=== PATIENT | female | born 1970 | race African-American/Black ===

== ENCOUNTER 2021-05-08 04:37 | Inpatient (IN) | payer MEDICAID ==
[~2021-05-08] VITALS: Ht 154.9 cm; Wt 121.6 kg
[~2021-05-08 04:37] MED LIST: ALBU6.7H9 INH; BUDE6HFA INH; DOCU-138 MT; FERR325T23 PO; FURO-151 MT; IPRA3AMP9 HHN; METO-539 MT; P20 MT; POTA20TA82 PO
[2021-05-08] MEDS ORDERED: METHYLPREDNISOLONE SOD SUCC 125 MG/2 ML VIAL IV STA (04:46)
[2021-05-08] MEDS ORDERED: IPRATROPIUM BROMIDE (0.02%) 0.5MG/2.5ML NEB HHN STA (04:46)
[2021-05-08] MEDS ORDERED: ASPIRIN 81MG TABLET PO ONE (05:00)
[2021-05-08] MEDS ORDERED: MAGNESIUM 2 G PREMIX 50 ML IV ONE (05:00)
[2021-05-08 05:29] LABS: BASOPHILS % 0.6 % (0.0-2.0); CHLORIDE 105 mEq/L (98-107); EOSINOPHILS % 2.7 % (0.0-5.0); HEMATOCRIT. 34.9 % (36.0-48.0); HEMOGLOBIN. 10.2 g/dL (12.0-16.0); LYMPHOCYTES % 19.7 % (20.0-50.0); MEAN CORPUSCULAR HEMOGLOBIN 23.3 pg (28.0-32.0); MEAN CORPUSCULAR VOLUME 80.3 fL (81.0-99.0); MEAN PLATELET VOLUME 9.4 fl (7.4-10.4); MONOCYTES % 7.9 % (2.0-8.0); NEUTROPHILS % 69.1 % (40.0-76.0); PLATELET 208 x1000/uL (130-400); RED BLOOD CELL COUNT 4.35 mill/uL (4.2-5.4); RED CELL DISTRIBUTION WIDTH 25.9 % (11.6-14.6)
[2021-05-08 06:07] LABS: PLATELET ESTIMATE NORMAL
[2021-05-08] MEDS: ALBUTEROL (0.083%) 2.5MG/3ML NEB HHN SCH ×2 (06:12→06:13)
[2021-05-08] MEDS ORDERED: NITROGLYCERIN OINT 1GM/INCH UDPKT TD ONE (06:30)
[2021-05-08] MEDS ORDERED: FUROSEMIDE 40MG/4ML VIAL IV ONE (06:30)
[2021-05-08] MEDS ORDERED: ENOXAPARIN 120MG/0.8ML SYR SUBCUT ONE (06:30)
[2021-05-08 06:43] LABS: HCG SCREEN NEGATIVE
[2021-05-08] MEDS ORDERED: NA PHOS,M-B/NA PHOS,DI-BA ENEMA 118ML PR PRN (09:30)
[2021-05-08] MEDS ORDERED: LORAZEPAM 0.5MG TABLET PO PRN (09:30)
[2021-05-08] MEDS ORDERED: ACETAMINOPHEN 325MG TABLET PO PRN ×2 (09:30)
[2021-05-08] MEDS ORDERED: ENOXAPARIN 40MG/0.4ML SYR SUBCUT SCH (09:30)
[2021-05-08] MEDS ORDERED: NITROGLYCERIN 0.4MG TABLET SL SL PRN (09:30)
[2021-05-08] MEDS ORDERED: IPRATROPIUM/ALBUTEROL 0.5-3(2.5)MG/3ML NEB NEB PRN (09:30)
[2021-05-08] MEDS ORDERED: ZOLPIDEM TARTRATE 5MG TABLET PO PRN (09:30)
[2021-05-08] MEDS ORDERED: ONDANSETRON HCL 4MG/2ML INJ IV PRN (09:30)
[2021-05-08] MEDS ORDERED: MAGNESIUM/ALUMINUM HYDROXIDE/SIMETHICONE 30ML UDC PO PRN (09:30)
[2021-05-08] MEDS ORDERED: DOCUSATE SODIUM 100MG CAPSULE PO PRN (09:30)
[2021-05-08] MEDS ORDERED: CLONIDINE 0.1MG TABLET PO PRN (09:30)
[2021-05-08 09:48] LABS: CLARITY URINE CLOUDY (CLEAR); COLOR URINE YELLOW (YELLOW); KETONES URINE NEGATIVE (NEGATIVE); LEUKOCYTE ESTERASE URINE TRACE (NEGATIVE); NITRITE URINE NEGATIVE (NEGATIVE); OCCULT BLOOD URINE 3+ (NEGATIVE); PROTEIN URINE NEGATIVE (NEGATIVE); SPECIFIC GRAVITY URINE 1.007 (1.005-1.030); UROBILINOGEN URINE 0.2 E.U./dL (0.2-1.0)
[2021-05-08 09:50] LABS: PARTIAL THROMBOPLASTIN TIME 27.4 sec (23.4-31.0); PROTHROMBIN TIME 11.2 sec (9.6-11.0)
[2021-05-08] MEDS ORDERED: IOHEXOL-350 100 ML BOTTLE ONE (10:20)
[2021-05-08 10:23] LABS: *BENZODIAZEPINES SCREEN URINE NEGATIVE (NEGATIVE); METHADONE URINE SCREEN NEGATIVE (NEGATIVE)
[2021-05-08 10:24] LABS: *AMPHETAMINES SCREEN URINE NEGATIVE (NEGATIVE); *BARBITURATES SCREEN URINE NEGATIVE (NEGATIVE); CANNABINOID URINE SCREEN NEGATIVE (NEGATIVE); OPIATES URINE SCREEN NEGATIVE (NEGATIVE); PHENCYCLIDINE URINE SCREEN NEGATIVE (NEGATIVE)
[2021-05-08 10:34] LABS: *COCAINE SCREEN URINE PRESUMTIVE POSITIVE (NEGATIVE)
[2021-05-08] MEDS: DILTIAZEM HCL 60MG TABLET PO SCH ×2 (13:01→20:29)
[2021-05-08] MEDS: METHYLPREDNISOLONE SOD SUCC 125 MG/2 ML VIAL IV SCH ×2 (14:00→22:05)
[2021-05-08 18:00] VITALS: BP 129/77
[2021-05-08] MEDS: IPRATROPIUM/ALBUTEROL 0.5-3(2.5)MG/3ML NEB HHN SCH ×3 (18:05→21:45)
[2021-05-08] MEDS: GUAIFENESIN 200MG/10ML SUGAR FREE UDC PO PRN ×2 (18:22→22:05)
[2021-05-08 20:00] VITALS: BP 162/77
[2021-05-08] MEDS: ASCORBIC ACID 500 MG TABLET PO SCH (20:29)
[2021-05-08] MEDS: FUROSEMIDE 40MG/4ML VIAL IVP SCH (22:05)
[2021-05-09] VITALS (7 sets, daily range): BP systolic 115–139; BP diastolic 66–90
[2021-05-09] MEDS: IPRATROPIUM/ALBUTEROL 0.5-3(2.5)MG/3ML NEB HHN SCH ×4 (01:30→20:03)
[2021-05-09] MEDS: METHYLPREDNISOLONE SOD SUCC 125 MG/2 ML VIAL IV SCH ×3 (05:16→22:58)
[2021-05-09] MEDS: SPIRONOLACTONE 25MG TABLET PO SCH ×2 (05:17→18:07)
[2021-05-09] MEDS: DILTIAZEM HCL 60MG TABLET PO SCH ×5 (05:17→22:59)
[2021-05-09 06:04] LABS: CHLORIDE 99 mEq/L (98-107)
[2021-05-09 06:14] LABS: PHOSPHORUS 3.9 mg/dL (2.5-4.9)
[2021-05-09 06:17] LABS: CREATINE KINASE 163 IU/L (26-192)
[2021-05-09 06:19] LABS: CREATINE KINASE MB FRACTION 2.1 ng/mL (0.5-3.6)
[2021-05-09 06:23] LABS: HEMATOCRIT. 36.2 % (36.0-48.0); HEMOGLOBIN. 10.5 g/dL (12.0-16.0); MEAN CORPUSCULAR HEMOGLOBIN 23.1 pg (28.0-32.0); MEAN CORPUSCULAR VOLUME 79.8 fL (81.0-99.0); MEAN PLATELET VOLUME 10.2 fl (7.4-10.4); PLATELET 243 x1000/uL (130-400); RED BLOOD CELL COUNT 4.53 mill/uL (4.2-5.4); RED CELL DISTRIBUTION WIDTH 26.1 % (11.6-14.6)
[2021-05-09] MEDS: ASPIRIN 325MG EC TABLET PO SCH (09:01)
[2021-05-09] MEDS: CHOLECALCIFEROL (D3) 1000 UNIT TABLET PO SCH (09:01)
[2021-05-09] MEDS: ASCORBIC ACID 500 MG TABLET PO SCH ×2 (09:01→20:29)
[2021-05-09] MEDS: ENOXAPARIN 30MG/0.3ML SYR SUBCUT SCH ×2 (09:02→20:30)
[2021-05-09] MEDS: ZINC SULFATE 220 MG ( 50 ) CAPSULE PO SCH (09:03)
[2021-05-09] MEDS ORDERED: LEVOFLOXACIN 750MG PREMIX 150 ML IV SCH (10:00)
[2021-05-09] MEDS: FUROSEMIDE 40MG/4ML VIAL IVP SCH ×2 (10:33→20:30)
[2021-05-09] MEDS: LEVOFLOXACIN 750MG PREMIX 150 ML IV SCH (13:14)
[2021-05-09 14:08] LABS: PLATELET ESTIMATE NORMAL
[2021-05-09] MEDS: GUAIFENESIN 200MG/10ML SUGAR FREE UDC PO PRN (19:37)
[2021-05-10] MEDS: GUAIFENESIN 200MG/10ML SUGAR FREE UDC PO PRN ×6 (00:20→20:59)
[2021-05-10] MEDS: IPRATROPIUM/ALBUTEROL 0.5-3(2.5)MG/3ML NEB HHN SCH ×6 (00:57→21:28)
[2021-05-10 03:52] VITALS: BP 140/86
[2021-05-10] MEDS: SPIRONOLACTONE 25MG TABLET PO SCH ×2 (05:00→16:40)
[2021-05-10] MEDS: METHYLPREDNISOLONE SOD SUCC 125 MG/2 ML VIAL IV SCH ×3 (05:00→23:00)
[2021-05-10] MEDS: DILTIAZEM HCL 60MG TABLET PO SCH ×5 (05:01→23:00)
[2021-05-10 07:08] LABS: CHLORIDE 94 mEq/L (98-107)
[2021-05-10 07:18] LABS: PHOSPHORUS 3.4 mg/dL (2.5-4.9)
[2021-05-10 08:00] VITALS: BP 127/61
[2021-05-10] MEDS: LEVOFLOXACIN 750MG PREMIX 150 ML IV SCH (09:49)
[2021-05-10] MEDS: ENOXAPARIN 30MG/0.3ML SYR SUBCUT SCH ×2 (09:51→20:59)
[2021-05-10] MEDS: ZINC SULFATE 220 MG ( 50 ) CAPSULE PO SCH (09:51)
[2021-05-10] MEDS: FUROSEMIDE 40MG/4ML VIAL IVP SCH ×2 (09:52→20:59)
[2021-05-10] MEDS: CHOLECALCIFEROL (D3) 1000 UNIT TABLET PO SCH (09:52)
[2021-05-10] MEDS: ASPIRIN 325MG EC TABLET PO SCH (09:59)
[2021-05-10] MEDS: ASCORBIC ACID 500 MG TABLET PO SCH ×2 (09:59→20:59)
[2021-05-10 12:00] VITALS: BP 138/63
[2021-05-10 16:00] VITALS: BP 136/74
[2021-05-10 20:00] VITALS: BP 134/89
[2021-05-10 23:39] VITALS: BP 134/57
[2021-05-11] MEDS: IPRATROPIUM/ALBUTEROL 0.5-3(2.5)MG/3ML NEB HHN SCH ×3 (01:37→08:45)
[2021-05-11] MEDS: GUAIFENESIN 200MG/10ML SUGAR FREE UDC PO PRN ×2 (01:52→09:38)
[2021-05-11 04:00] VITALS: BP 146/96
[2021-05-11] MEDS: METHYLPREDNISOLONE SOD SUCC 125 MG/2 ML VIAL IV SCH (05:03)
[2021-05-11] MEDS: DILTIAZEM HCL 60MG TABLET PO SCH (05:03)
[2021-05-11] MEDS: SPIRONOLACTONE 25MG TABLET PO SCH (05:03)
[2021-05-11 08:00] VITALS: BP 132/69
[2021-05-11] MEDS: ZINC SULFATE 220 MG ( 50 ) CAPSULE PO SCH (09:35)
[2021-05-11] MEDS: ASCORBIC ACID 500 MG TABLET PO SCH (09:35)
[2021-05-11] MEDS: FUROSEMIDE 40MG/4ML VIAL IVP SCH (09:35)
[2021-05-11] MEDS: CHOLECALCIFEROL (D3) 1000 UNIT TABLET PO SCH (09:35)
[2021-05-11] MEDS: ASPIRIN 325MG EC TABLET PO SCH (09:36)
[2021-05-11] MEDS: LEVOFLOXACIN 750MG PREMIX 150 ML IV SCH (09:37)
[2021-05-11] MEDS: ENOXAPARIN 30MG/0.3ML SYR SUBCUT SCH (09:38)
[2021-05-11 10:11] VITALS: BP 132/69
== END 2021-05-11 11:30 | disposition home or self-care (01) | DRG 194 ==
LOC: ER 04:37 → MICUSO 07:39 → 8WST 16:43
PROVIDERS: ADMIT Internal Medicine; ATTEND Internal Medicine
DX: I11.0 Hypertensive heart disease with heart failure (principal); E44.1 Mild protein-calorie malnutrition; J44.1 Chronic obstructive pulmonary disease with (acute) exacerbation; D63.8 Anemia in other chronic diseases classified elsewhere; E83.51 Hypocalcemia; Z68.43 Body mass index [BMI] 50.0-59.9, adult; Z20.822 Contact with and (suspected) exposure to COVID-19; I50.33 Acute on chronic diastolic (congestive) heart failure; F14.10 Cocaine abuse, uncomplicated; I25.10 Atherosclerotic heart disease of native coronary artery without angina pectoris; Z79.84 Long term (current) use of oral hypoglycemic drugs; Z79.899 Other long term (current) drug therapy
CPT/HCPCS: 36415; 71045; 71275; 80048; 80053; 80305; 81003; 82550; 82553; 82728; 83615; 83735; 83880; 84100; 84145; 84484; 84703; 85025; 85379; 87426; 87804; 93005; 94640; 99285; J1650; J1940; J1956; J2930; J3475; Q9967

== ENCOUNTER 2021-06-02 11:47 | Inpatient (IN) | payer MEDICAID, OTHER ==
[~2021-06-02] VITALS: Ht 165.1 cm; Wt 131.1 kg
[2021-06-02] MEDS ORDERED: GABAPENTIN (11:51)
[2021-06-02] MEDS ORDERED: IPRATROPIUM BROMIDE (0.02%) 0.5MG/2.5ML NEB HHN STA (12:17)
[2021-06-02] MEDS ORDERED: METHYLPREDNISOLONE SOD SUCC 125 MG/2 ML VIAL IV STA (12:17)
[2021-06-02] MEDS ORDERED: NITROGLYCERIN OINT 1GM/INCH UDPKT TD ONE (12:30)
[2021-06-02] MEDS ORDERED: MAGNESIUM 2 G PREMIX 50 ML IV ONE (12:30)
[2021-06-02] MEDS ORDERED: ALBUTEROL (0.083%) 2.5MG/3ML NEB HHN SCH (12:30)
[2021-06-02] MEDS ORDERED: FUROSEMIDE 40MG/4ML VIAL IV ONE (12:30)
[2021-06-02 13:13] LABS: EOSINOPHILS % 1.7 % (0.0-5.0); HEMATOCRIT. 36.7 % (36.0-48.0); HEMOGLOBIN. 10.6 g/dL (12.0-16.0); LYMPHOCYTES % 23.5 % (20.0-50.0); MEAN CORPUSCULAR HEMOGLOBIN 22.9 pg (28.0-32.0); MEAN CORPUSCULAR VOLUME 79.4 fL (81.0-99.0); MONOCYTES % 10.9 % (2.0-8.0); NEUTROPHILS % 62.9 % (40.0-76.0); RED BLOOD CELL COUNT 4.62 mill/uL (4.2-5.4); RED CELL DISTRIBUTION WIDTH 25.1 % (11.6-14.6)
[2021-06-02 13:21] LABS: CHLORIDE 102 mEq/L (98-107)
[2021-06-02 13:34] LABS: PLATELET 133 x1000/uL (130-400)
[2021-06-02] MEDS ORDERED: LORAZEPAM 2MG/ML CPJ IM ONE (14:00)
[2021-06-02] MEDS ORDERED: LORAZEPAM 2MG/ML CPJ IV PRN (16:15)
[2021-06-02] MEDS ORDERED: DOCUSATE SODIUM 100MG CAPSULE PO PRN (16:15)
[2021-06-02] MEDS ORDERED: MORPHINE SULFATE 2 MG/ML CPJ (NOT FOR IM USE) IV PRN (16:15)
[2021-06-02] MEDS ORDERED: CLONIDINE 0.1MG TABLET PO PRN (16:15)
[2021-06-02] MEDS ORDERED: ACETAMINOPHEN 325MG TABLET PO PRN (16:15)
[2021-06-02] MEDS ORDERED: ONDANSETRON HCL 4MG/2ML INJ IV PRN (16:15)
[2021-06-02] MEDS ORDERED: HYDROCODONE/ACETAMINOPHEN 5/325MG TABLET PO PRN (16:15)
[2021-06-02] MEDS ORDERED: DIPHENHYDRAMINE 50MG/ML VIAL IV PRN (16:15)
[2021-06-02] MEDS ORDERED: MAGNESIUM/ALUMINUM HYDROXIDE/SIMETHICONE 30ML UDC PO PRN (16:15)
[2021-06-02 16:39] LABS: CLARITY URINE CLOUDY (CLEAR); COLOR URINE YELLOW (YELLOW); KETONES URINE NEGATIVE (NEGATIVE); LEUKOCYTE ESTERASE URINE NEGATIVE (NEGATIVE); NITRITE URINE NEGATIVE (NEGATIVE); OCCULT BLOOD URINE NEGATIVE (NEGATIVE); PROTEIN URINE TRACE (NEGATIVE); SPECIFIC GRAVITY URINE 1.019 (1.005-1.030)
[2021-06-02] MEDS ORDERED: ALBUTEROL 6.7GM HFA INHALER ORI PRN (17:13)
[2021-06-02] MEDS ORDERED: CEFTRIAXONE 1 G PREMIX 50 ML IV SCH (17:15)
[2021-06-02 17:16] LABS: *AMPHETAMINES SCREEN URINE NEGATIVE (NEGATIVE); *BARBITURATES SCREEN URINE NEGATIVE (NEGATIVE); *BENZODIAZEPINES SCREEN URINE NEGATIVE (NEGATIVE); METHADONE URINE SCREEN NEGATIVE (NEGATIVE)
[2021-06-02 17:17] LABS: OPIATES URINE SCREEN NEGATIVE (NEGATIVE); PHENCYCLIDINE URINE SCREEN NEGATIVE (NEGATIVE)
[2021-06-02 17:19] LABS: *COCAINE SCREEN URINE PRESUMTIVE POSITIVE (NEGATIVE); CANNABINOID URINE SCREEN PRESUMTIVE POSITIVE (NEGATIVE)
[2021-06-02] MEDS ORDERED: AZITHROMYCIN 500 MG in DEXT 5% WATER 250 ML IV SCH (18:00)
[2021-06-02] MEDS: ENOXAPARIN 40MG/0.4ML SYR SUBCUT SCH (18:54)
[2021-06-02] MEDS: METHYLPREDNISOLONE SOD SUCC 40 MG/ML VIAL IV SCH (20:13)
[2021-06-02] MEDS: SODIUM CHLORIDE 0.9% INJ 3ML FLUSH IVF SCH (22:00)
[2021-06-02] MEDS: IPRATROPIUM/ALBUTEROL 0.5-3(2.5)MG/3ML NEB HHN PRN (23:25)
[2021-06-03] VITALS: BP 130/76
[2021-06-03] MEDS: METHYLPREDNISOLONE SOD SUCC 40 MG/ML VIAL IV SCH ×2 (01:39→09:23)
[2021-06-03 04:00] VITALS: BP 140/83
[2021-06-03] MEDS: SODIUM CHLORIDE 0.9% INJ 3ML FLUSH IVF SCH ×2 (06:03→14:40)
[2021-06-03 07:45] LABS: CHLORIDE 97 mEq/L (98-107)
[2021-06-03] MEDS: FUROSEMIDE 40MG/4ML VIAL IV SCH (09:23)
[2021-06-03] MEDS: IPRATROPIUM/ALBUTEROL 0.5-3(2.5)MG/3ML NEB HHN PRN (11:26)
[2021-06-03] MEDS ORDERED: LIDOCAINE HCL/PF 1% 2ML VIAL ONE (12:18)
[2021-06-03 12:52] LABS: BG BASE EXCESS 8.2 mmol/L (-2.0-2.0); BG CARBOXYHEMOGLOBIN 1.3 % (0.5-1.5); BG DEOXYHEMOGLOBIN 14.3 % (0.0-5.0); BG HCO3 ACT 35.1 mmol/L (22.0-26.0); BG METHEMOGLOBIN 0.3 % (0.0-1.5); BG OXYGEN SATURATION 85.5 % (92.0-98.5); BG OXYHEMOGLOBIN 84.1 % (94.0-97.0); BG PH 7.378 (7.350-7.450); BG PO2 52.7 mmHg (75.0-100.0); BG SAMPLE SITE RIGHT RADIAL; BG TOTAL HEMOGLOBIN 11.3 g/dL (12.0-18.0); BG VENT MODE ROOM AIR
[2021-06-03 13:03] LABS: T4 FREE 0.73 ng/dL (0.76-1.46)
[2021-06-03] MEDS: METHYLPREDNISOLONE SOD SUCC 125 MG/2 ML VIAL IV SCH ×2 (14:39→16:57)
[2021-06-03] MEDS: IPRATROPIUM/ALBUTEROL 0.5-3(2.5)MG/3ML NEB HHN SCH ×2 (15:38→20:22)
[2021-06-03 16:23] LABS: HEMATOCRIT. 37.2 % (36.0-48.0); HEMOGLOBIN. 10.9 g/dL (12.0-16.0); MEAN CORPUSCULAR HEMOGLOBIN 23.2 pg (28.0-32.0); MEAN CORPUSCULAR VOLUME 79.3 fL (81.0-99.0); MEAN PLATELET VOLUME 10.7 fl (7.4-10.4); PLATELET 200 x1000/uL (130-400); RED BLOOD CELL COUNT 4.69 mill/uL (4.2-5.4); RED CELL DISTRIBUTION WIDTH 24.8 % (11.6-14.6)
[2021-06-03 16:42] LABS: CREATINE KINASE 151 IU/L (26-192)
[2021-06-03 16:43] LABS: CREATINE KINASE MB FRACTION 4.2 ng/mL (0.5-3.6)
[2021-06-03 16:53] LABS: PLATELET ESTIMATE NORMAL
[2021-06-03] MEDS: CEFTRIAXONE 1,000 MG in DEXTROSE 5% WATER 50 ML IV SCH (16:57)
[2021-06-03] MEDS: ENOXAPARIN 40MG/0.4ML SYR SUBCUT SCH (16:57)
[2021-06-03] MEDS ORDERED: NALOXONE HCL 0.4MG/ML VIAL IV PRN (17:00)
[2021-06-03] MEDS: AZITHROMYCIN 500 MG in DEXT 5% WATER 250 ML IV SCH (18:01)
[2021-06-03 20:00] VITALS: BP 145/63
[2021-06-03] MEDS: GUAIFENESIN 200MG/10ML SUGAR FREE UDC PO PRN (21:35)
[2021-06-03 23:33] LABS: CREATINE KINASE 123 IU/L (26-192)
[2021-06-03 23:34] LABS: CREATINE KINASE MB FRACTION 3.3 ng/mL (0.5-3.6)
[2021-06-04] VITALS: BP 146/72
[2021-06-04] MEDS: METHYLPREDNISOLONE SOD SUCC 125 MG/2 ML VIAL IV SCH ×5 (00:38→23:58)
[2021-06-04] MEDS: SODIUM CHLORIDE 0.9% INJ 3ML FLUSH IVF SCH ×4 (00:39→21:21)
[2021-06-04] MEDS: IPRATROPIUM/ALBUTEROL 0.5-3(2.5)MG/3ML NEB HHN SCH ×7 (00:49→23:26)
[2021-06-04 04:00] VITALS: BP 125/83
[2021-06-04 08:00] VITALS: BP 115/67
[2021-06-04 08:23] LABS: HEMOGLOBIN. 9.3 g/dL (12.0-16.0); MEAN CORPUSCULAR HEMOGLOBIN 22.8 pg (28.0-32.0); MEAN CORPUSCULAR VOLUME 78.1 fL (81.0-99.0); MEAN PLATELET VOLUME 10.3 fl (7.4-10.4); PLATELET 208 x1000/uL (130-400); RED CELL DISTRIBUTION WIDTH 24.8 % (11.6-14.6)
[2021-06-04 08:33] LABS: CHLORIDE 97 mEq/L (98-107)
[2021-06-04 08:46] LABS: CREATINE KINASE 83 IU/L (26-192)
[2021-06-04 08:51] LABS: CREATINE KINASE MB FRACTION 2.5 ng/mL (0.5-3.6)
[2021-06-04] MEDS: ENOXAPARIN 40MG/0.4ML SYR SUBCUT SCH ×2 (08:57→20:36)
[2021-06-04] MEDS: FUROSEMIDE 40MG/4ML VIAL IV SCH (08:57)
[2021-06-04 12:00] VITALS: BP 135/59
[2021-06-04 16:00] VITALS: BP 120/70
[2021-06-04] MEDS: CEFTRIAXONE 1,000 MG in DEXTROSE 5% WATER 50 ML IV SCH (17:14)
[2021-06-04] MEDS: AZITHROMYCIN 500 MG in DEXT 5% WATER 250 ML IV SCH (17:14)
[2021-06-04] MEDS: GUAIFENESIN 200MG/10ML SUGAR FREE UDC PO PRN (19:49)
[2021-06-04 20:00] VITALS: BP 135/62
[2021-06-04 23:26] LABS: PLATELET ESTIMATE NORMAL
[2021-06-05] VITALS: BP 132/65
[2021-06-05 04:00] VITALS: BP 128/62
[2021-06-05] MEDS: IPRATROPIUM/ALBUTEROL 0.5-3(2.5)MG/3ML NEB HHN SCH ×3 (04:22→13:10)
[2021-06-05] MEDS: SODIUM CHLORIDE 0.9% INJ 3ML FLUSH IVF SCH ×2 (06:01→12:24)
[2021-06-05] MEDS: METHYLPREDNISOLONE SOD SUCC 125 MG/2 ML VIAL IV SCH ×2 (06:01→12:24)
[2021-06-05 08:00] VITALS: BP 146/70
[2021-06-05] MEDS: FUROSEMIDE 40MG/4ML VIAL IV SCH (08:33)
[2021-06-05] MEDS: ENOXAPARIN 40MG/0.4ML SYR SUBCUT SCH (08:34)
[2021-06-05] MEDS: GUAIFENESIN 200MG/10ML SUGAR FREE UDC PO PRN (09:36)
[2021-06-05 12:00] VITALS: BP 122/64
[2021-06-05 13:12] VITALS: BP 122/64
== END 2021-06-05 14:25 | disposition home or self-care (01) | DRG 816 ==
LOC: ER 11:47 → EDBEDREQTM 14:09 → EDBEDREQ 14:09 → 8WST 14:44 → EDBEDREQ 14:46 → EDBEDREQTM 14:46 → ENRESERV 20:13
PROVIDERS: ADMIT Internal Medicine; ATTEND Internal Medicine
PROC: 05HY33Z Insertion of Infusion Device into Upper Vein, Percutaneous Approach (ICD-10-PCS; principal; 2021-06-02)
PROC: B54BZZA Ultrasonography of Right Lower Extremity Veins, Guidance (ICD-10-PCS; 2021-06-02)
DX: T40.5X1A Poisoning by cocaine, accidental (unintentional), initial encounter (principal); J96.01 Acute respiratory failure with hypoxia; I50.33 Acute on chronic diastolic (congestive) heart failure; J96.02 Acute respiratory failure with hypercapnia; E44.0 Moderate protein-calorie malnutrition; E66.01 Morbid (severe) obesity due to excess calories; I11.0 Hypertensive heart disease with heart failure; F12.10 Cannabis abuse, uncomplicated; Z20.822 Contact with and (suspected) exposure to COVID-19; F17.210 Nicotine dependence, cigarettes, uncomplicated; Z99.81 Dependence on supplemental oxygen; Z79.899 Other long term (current) drug therapy; Z98.891 History of uterine scar from previous surgery; Y92.89 Other specified places as the place of occurrence of the external cause; Z68.42 Body mass index [BMI] 45.0-49.9, adult; Z79.51 Long term (current) use of inhaled steroids; J68.0 Bronchitis and pneumonitis due to chemicals, gases, fumes and vapors
CPT/HCPCS: 36415; 36600; 71045; 76937; 80048; 80053; 80061; 80305; 81003; 82375; 82550; 82553; 82805; 83036; 83880; 84439; 84443; 84484; 85025; 85379; 87426; 93005; 93306; 93970; 94640; 99291; C1725; J0456; J0696; J1650; J1940; J2920; J2930; J3475; J3490; J7040; J7060

== ENCOUNTER 2021-06-05 19:56 | Emergency (ER) | payer MEDICAID ==
[~2021-06-05] VITALS: Ht 157.5 cm; Wt 132.0 kg
[~2021-06-05 19:56] MED LIST changes: +GABAPENTIN
[2021-06-05 20:05] VITALS: BP 148/77
[2021-06-05] MEDS ORDERED: IPRATROPIUM BROMIDE (0.02%) 0.5MG/2.5ML NEB HHN STA (20:21)
[2021-06-05] MEDS ORDERED: PREDNISONE 20MG TABLET PO STA (20:21)
[2021-06-05] MEDS ORDERED: ALBUTEROL (0.083%) 2.5MG/3ML NEB HHN STA (20:21)
== END 2021-06-05 21:47 | disposition home or self-care (01) ==
LOC: ER 21:17
DX: J44.1 Chronic obstructive pulmonary disease with (acute) exacerbation (principal); I11.0 Hypertensive heart disease with heart failure; I50.9 Heart failure, unspecified; I10 Essential (primary) hypertension; Z91.19 Patient's noncompliance with other medical treatment and regimen; Z98.890 Other specified postprocedural states; Z79.899 Other long term (current) drug therapy
CPT/HCPCS: 94640; 99283; J7512; Z7610

== ENCOUNTER 2021-07-09 16:53 | Inpatient (IN) | payer MEDICAID ==
[~2021-07-09] VITALS: Ht 157.5 cm; Wt 135.6 kg
[2021-07-09] MEDS ORDERED: METHYLPREDNISOLONE SOD SUCC 125 MG/2 ML VIAL IV STA (17:23)
[2021-07-09] MEDS ORDERED: ALBUTEROL (0.083%) 2.5MG/3ML NEB HHN STA ×2 (17:23→22:22)
[2021-07-09] MEDS ORDERED: IPRATROPIUM BROMIDE (0.02%) 0.5MG/2.5ML NEB HHN STA ×2 (17:23→22:22)
[2021-07-09] MEDS ORDERED: CEFTRIAXONE SODIUM 500 MG/VIAL IM ONE (17:30)
[2021-07-09] MEDS ORDERED: DOXYCYCLINE HYCLATE 100MG CAPSULE PO ONE (17:30)
[2021-07-09 19:28] LABS: BASOPHILS % 0.9 % (0.0-2.0); EOSINOPHILS % 2.3 % (0.0-5.0); HEMATOCRIT. 33.7 % (36.0-48.0); HEMOGLOBIN. 9.8 g/dL (12.0-16.0); MEAN CORPUSCULAR VOLUME 79.5 fL (81.0-99.0); MEAN PLATELET VOLUME 9.4 fl (7.4-10.4); MONOCYTES % 11.4 % (2.0-8.0); NEUTROPHILS % 68.4 % (40.0-76.0); PLATELET 223 x1000/uL (130-400); RED BLOOD CELL COUNT 4.24 mill/uL (4.2-5.4); RED CELL DISTRIBUTION WIDTH 24.3 % (11.6-14.6)
[2021-07-09 19:33] LABS: CHLORIDE 98 mEq/L (98-107)
[2021-07-09 20:07] LABS: PLATELET ESTIMATE NORMAL
[2021-07-09] MEDS ORDERED: PREDNISONE 20MG TABLET PO ONE (21:00)
[2021-07-09 22:43] LABS: BG BASE EXCESS 13.6 mmol/L (-2.0-2.0); BG CARBOXYHEMOGLOBIN 1.2 % (0.5-1.5); BG HCO3 ACT 42.6 mmol/L (22.0-26.0); BG METHEMOGLOBIN 0.2 % (0.0-1.5); BG OXYGEN SATURATION 92.9 % (92.0-98.5); BG OXYHEMOGLOBIN 91.6 % (94.0-97.0); BG PCO2 84.9 mmHg (35.0-45.0); BG PH 7.318 (7.350-7.450); BG PO2 72.4 mmHg (75.0-100.0); BG SAMPLE SITE RIGHT RADIAL; BG TOTAL HEMOGLOBIN 10.4 g/dL (12.0-18.0); BG VENT MODE NASAL CANNULA
[2021-07-09] MEDS ORDERED: FUROSEMIDE 40MG/4ML VIAL IVP NR (23:30)
[2021-07-10] VITALS (9 sets, daily range): BP systolic 129–155; BP diastolic 69–83
[2021-07-10 00:30] LABS: BG BASE EXCESS 11.8 mmol/L (-2.0-2.0); BG CARBOXYHEMOGLOBIN 1.3 % (0.5-1.5); BG DEOXYHEMOGLOBIN 2.2 % (0.0-5.0); BG FRACTION INSPIRED OXYGEN 80; BG HCO3 ACT 41.4 mmol/L (22.0-26.0); BG METHEMOGLOBIN 0.3 % (0.0-1.5); BG OXYGEN SATURATION 97.8 % (92.0-98.5); BG OXYHEMOGLOBIN 96.2 % (94.0-97.0); BG PCO2 88.8 mmHg (35.0-45.0); BG PH 7.286 (7.350-7.450); BG PO2 119.3 mmHg (75.0-100.0); BG SAMPLE SITE RIGHT RADIAL; BG TOTAL HEMOGLOBIN 10.7 g/dL (12.0-18.0); BG VENT MODE COOL AEROSOL
[2021-07-10] MEDS ORDERED: MAGNESIUM/ALUMINUM HYDROXIDE/SIMETHICONE 30ML UDC PO PRN (02:30)
[2021-07-10] MEDS ORDERED: GUAIFENESIN 200MG/10ML SUGAR FREE UDC PO PRN (02:30)
[2021-07-10] MEDS ORDERED: ZOLPIDEM TARTRATE 5MG TABLET PO PRN (02:30)
[2021-07-10] MEDS ORDERED: DIPHENHYDRAMINE 50MG/ML VIAL IV PRN (02:30)
[2021-07-10] MEDS ORDERED: ENOXAPARIN 40MG/0.4ML SYR SUBCUT SCH (02:30)
[2021-07-10] MEDS ORDERED: ONDANSETRON HCL 4MG/2ML INJ IV PRN (02:30)
[2021-07-10] MEDS ORDERED: IPRATROPIUM/ALBUTEROL 0.5-3(2.5)MG/3ML NEB HHN PRN (02:30)
[2021-07-10] MEDS ORDERED: ACETAMINOPHEN 325MG TABLET PO PRN ×2 (02:30)
[2021-07-10 02:58] LABS: BG BASE EXCESS 7.7 mmol/L (-2.0-2.0); BG CARBOXYHEMOGLOBIN 1.4 % (0.5-1.5); BG DEOXYHEMOGLOBIN 11.3 % (0.0-5.0); BG FRACTION INSPIRED OXYGEN 30; BG METHEMOGLOBIN 0.3 % (0.0-1.5); BG OXYGEN SATURATION 88.5 % (92.0-98.5); BG PCO2 73.6 mmHg (35.0-45.0); BG PH 7.307 (7.350-7.450); BG PO2 60.5 mmHg (75.0-100.0); BG SAMPLE SITE RIGHT RADIAL; BG TOTAL HEMOGLOBIN 10.8 g/dL (12.0-18.0); BG VENT MODE MASK - BIPAP
[2021-07-10] MEDS: METHYLPREDNISOLONE SOD SUCC 125 MG/2 ML VIAL IV SCH ×3 (08:18→23:01)
[2021-07-10] MEDS: IPRATROPIUM/ALBUTEROL 0.5-3(2.5)MG/3ML NEB HHN SCH ×4 (08:45→20:23)
[2021-07-10] MEDS: SODIUM CHLORIDE 0.9% INJ 3ML FLUSH IVF SCH ×2 (14:00→23:01)
[2021-07-10] MEDS: ENOXAPARIN 30MG/0.3ML SYR SUBCUT SCH ×2 (14:19→21:20)
[2021-07-10] MEDS: PANTOPRAZOLE 40MG DR TABLET PO SCH ×2 (14:19→21:20)
[2021-07-11] VITALS (12 sets, daily range): BP systolic 133–148; BP diastolic 70–96
[2021-07-11] MEDS: IPRATROPIUM/ALBUTEROL 0.5-3(2.5)MG/3ML NEB HHN SCH ×6 (00:06→20:36)
[2021-07-11] MEDS: METHYLPREDNISOLONE SOD SUCC 125 MG/2 ML VIAL IV SCH ×2 (05:26→14:05)
[2021-07-11] MEDS: SODIUM CHLORIDE 0.9% INJ 3ML FLUSH IVF SCH ×3 (05:26→21:40)
[2021-07-11] MEDS: PANTOPRAZOLE 40MG DR TABLET PO SCH ×2 (08:05→21:40)
[2021-07-11] MEDS: ENOXAPARIN 30MG/0.3ML SYR SUBCUT SCH (08:06)
[2021-07-11 11:54] LABS: BG BASE EXCESS 10.5 mmol/L (-2.0-2.0); BG CARBOXYHEMOGLOBIN 0.9 % (0.5-1.5); BG DEOXYHEMOGLOBIN 1.8 % (0.0-5.0); BG FRACTION INSPIRED OXYGEN 32; BG HCO3 ACT 37.2 mmol/L (22.0-26.0); BG OXYGEN SATURATION 98.2 % (92.0-98.5); BG OXYHEMOGLOBIN 97.3 % (94.0-97.0); BG PCO2 61.8 mmHg (35.0-45.0); BG PH 7.397 (7.350-7.450); BG PO2 111.9 mmHg (75.0-100.0); BG SAMPLE SITE LEFT RADIAL; BG TOTAL HEMOGLOBIN 10.7 g/dL (12.0-18.0); BG VENT MODE NASAL CANNULA
[2021-07-11] MEDS: ENOXAPARIN 40MG/0.4ML SYR SUBCUT SCH (21:38)
[2021-07-11] MEDS: FUROSEMIDE 40MG TABLET PO SCH (21:40)
[2021-07-12] VITALS (11 sets, daily range): BP systolic 92–160; BP diastolic 47–97
[2021-07-12] MEDS: IPRATROPIUM/ALBUTEROL 0.5-3(2.5)MG/3ML NEB HHN SCH ×5 (00:24→16:15)
[2021-07-12] MEDS: SODIUM CHLORIDE 0.9% INJ 3ML FLUSH IVF SCH ×2 (05:45→14:45)
[2021-07-12 07:20] LABS: CHLORIDE 93 mEq/L (98-107)
[2021-07-12 07:28] LABS: PHOSPHORUS 4.1 mg/dL (2.5-4.9)
[2021-07-12] MEDS ORDERED: METHYLPREDNISOLONE SOD SUCC 125 MG/2 ML VIAL IV SCH (09:00)
[2021-07-12] MEDS ORDERED: POTASSIUM CHLORIDE 10MEQ TABLET SR PO SCH (09:00)
[2021-07-12] MEDS: PANTOPRAZOLE 40MG DR TABLET PO SCH (09:13)
[2021-07-12] MEDS: FUROSEMIDE 40MG TABLET PO SCH (09:13)
[2021-07-12] MEDS: ENOXAPARIN 40MG/0.4ML SYR SUBCUT SCH (09:15)
[2021-07-13 04:09] LABS: NEISSERIA GONORRHOEAE NAA Negative (Negative)
== END 2021-07-12 23:32 | disposition home or self-care (01) | DRG 816 ==
LOC: ER 16:53 → EDBEDREQSVC 07-10 03:08 → ENRESERV 07-10 03:32 → CANRESERV 07-10 03:32 → EDBEDREQSVC 07-10 06:53 → MICUSO 07-10 07:26 → 5EST 07-10 08:39
PROVIDERS: ADMIT Internal Medicine; ATTEND Internal Medicine
PROC: 5A09357 Assistance with Respiratory Ventilation, Less than 24 Consecutive Hours, Continuous Positive Airway Pressure (ICD-10-PCS; principal; 2021-07-10)
PROC: 5A09357 Assistance with Respiratory Ventilation, Less than 24 Consecutive Hours, Continuous Positive Airway Pressure (ICD-10-PCS; 2021-07-12)
DX: T40.5X1A Poisoning by cocaine, accidental (unintentional), initial encounter (principal); J96.01 Acute respiratory failure with hypoxia; I50.33 Acute on chronic diastolic (congestive) heart failure; J96.02 Acute respiratory failure with hypercapnia; E44.1 Mild protein-calorie malnutrition; J68.0 Bronchitis and pneumonitis due to chemicals, gases, fumes and vapors; D64.9 Anemia, unspecified; E66.01 Morbid (severe) obesity due to excess calories; Z20.822 Contact with and (suspected) exposure to COVID-19; F14.10 Cocaine abuse, uncomplicated; F17.210 Nicotine dependence, cigarettes, uncomplicated; I25.10 Atherosclerotic heart disease of native coronary artery without angina pectoris; Z99.81 Dependence on supplemental oxygen; Z68.43 Body mass index [BMI] 50.0-59.9, adult; Z79.899 Other long term (current) drug therapy; Z71.51 Drug abuse counseling and surveillance of drug abuser; Y92.89 Other specified places as the place of occurrence of the external cause
CPT/HCPCS: 36415; 36600; 71045; 80048; 80053; 82375; 82805; 83735; 83880; 84100; 85025; 87210; 87426; 87491; 87591; 93005; 94640; 94660; 99291; C1893; J0696; J1650; J1940; J2930; J7512

== ENCOUNTER 2021-08-03 11:16 | Inpatient (IN) | payer MEDICAID ==
[~2021-08-03] VITALS: Ht 157.5 cm; Wt 129.9 kg
[2021-08-03] MEDS ORDERED: ALBUTEROL (0.083%) 2.5MG/3ML NEB HHN STA (11:25)
[2021-08-03] MEDS ORDERED: IPRATROPIUM BROMIDE (0.02%) 0.5MG/2.5ML NEB HHN STA (11:25)
[2021-08-03 12:24] LABS: BASOPHILS % 1.2 % (0.0-2.0); EOSINOPHILS % 0.7 % (0.0-5.0); HEMATOCRIT. 34.6 % (36.0-48.0); HEMOGLOBIN. 9.7 g/dL (12.0-16.0); LYMPHOCYTES % 7.9 % (20.0-50.0); MEAN CORPUSCULAR HEMOGLOBIN 22.3 pg (28.0-32.0); MEAN CORPUSCULAR VOLUME 79.3 fL (81.0-99.0); MEAN PLATELET VOLUME 10.2 fl (7.4-10.4); MONOCYTES % 5.4 % (2.0-8.0); NEUTROPHILS % 84.8 % (40.0-76.0); PLATELET 218 x1000/uL (130-400); RED BLOOD CELL COUNT 4.36 mill/uL (4.2-5.4); RED CELL DISTRIBUTION WIDTH 25.5 % (11.6-14.6)
[2021-08-03 12:32] LABS: CHLORIDE 100 mEq/L (98-107)
[2021-08-03 12:35] LABS: HCG SCREEN NEGATIVE
[2021-08-03] MEDS: METHYLPREDNISOLONE SOD SUCC 125 MG/2 ML VIAL IV STA ×2 (12:41→16:20)
[2021-08-03] MEDS: MAGNESIUM 2 G PREMIX 50 ML IV ONE ×2 (12:41→16:20)
[2021-08-03] MEDS: FUROSEMIDE 40MG/4ML VIAL IVP ONE ×2 (12:42→16:20)
[2021-08-03 12:48] LABS: PLATELET ESTIMATE NORMAL
[2021-08-03] MEDS ORDERED: LIDOCAINE HCL 1% 10 MG/ML 10ML VIAL ONE (13:43)
[2021-08-03] MEDS ORDERED: ONDANSETRON HCL 4MG/2ML INJ IV PRN (15:00)
[2021-08-03] MEDS ORDERED: DIPHENHYDRAMINE 50MG/ML VIAL IV PRN (15:00)
[2021-08-03] MEDS ORDERED: IPRATROPIUM/ALBUTEROL 0.5-3(2.5)MG/3ML NEB HHN PRN ×2 (15:00→15:30)
[2021-08-03] MEDS ORDERED: ACETAMINOPHEN 325MG TABLET PO PRN (15:00)
[2021-08-03] MEDS ORDERED: CLONIDINE 0.1MG TABLET PO PRN (15:00)
[2021-08-03] MEDS ORDERED: METHYLPREDNISOLONE SOD SUCC 40 MG/ML VIAL IV SCH (15:30)
[2021-08-03] MEDS ORDERED: LIDOCAINE HCL/PF 1% 2ML VIAL ONE (16:02)
[2021-08-03] MEDS: SPIRONOLACTONE 25MG TABLET PO SCH (16:40)
[2021-08-03] MEDS: AMLODIPINE 5MG TABLET PO SCH (16:40)
[2021-08-03 16:49] LABS: BG BASE EXCESS 0.5 mmol/L (-2.0-2.0); BG CARBOXYHEMOGLOBIN 1.5 % (0.5-1.5); BG DEOXYHEMOGLOBIN 15.5 % (0.0-5.0); BG METHEMOGLOBIN 0.2 % (0.0-1.5); BG OXYGEN SATURATION 84.2 % (92.0-98.5); BG OXYHEMOGLOBIN 82.8 % (94.0-97.0); BG PCO2 60.9 mmHg (35.0-45.0); BG PH 7.281 (7.350-7.450); BG PO2 53.5 mmHg (75.0-100.0); BG SAMPLE SITE RIGHT RADIAL; BG TOTAL HEMOGLOBIN 9.9 g/dL (12.0-18.0); BG VENT MODE NASAL CANNULA
[2021-08-03] MEDS ORDERED: DEXTROSE 50% WATER 50ML SYRINGE IV PRN (18:30)
[2021-08-03 18:46] LABS: CLARITY URINE CLEAR (CLEAR); COLOR URINE YELLOW (YELLOW); KETONES URINE NEGATIVE (NEGATIVE); LEUKOCYTE ESTERASE URINE NEGATIVE (NEGATIVE); NITRITE URINE NEGATIVE (NEGATIVE); OCCULT BLOOD URINE NEGATIVE (NEGATIVE); PROTEIN URINE NEGATIVE (NEGATIVE); SPECIFIC GRAVITY URINE 1.009 (1.005-1.030); UROBILINOGEN URINE 0.2 E.U./dL (0.2-1.0)
[2021-08-03 18:55] LABS: *AMPHETAMINES SCREEN URINE NEGATIVE (NEGATIVE); *BARBITURATES SCREEN URINE NEGATIVE (NEGATIVE)
[2021-08-03 18:56] LABS: *BENZODIAZEPINES SCREEN URINE NEGATIVE (NEGATIVE); CANNABINOID URINE SCREEN NEGATIVE (NEGATIVE); METHADONE URINE SCREEN NEGATIVE (NEGATIVE); OPIATES URINE SCREEN NEGATIVE (NEGATIVE); PHENCYCLIDINE URINE SCREEN NEGATIVE (NEGATIVE)
[2021-08-03 19:01] LABS: *COCAINE SCREEN URINE PRESUMTIVE POSITIVE (NEGATIVE)
[2021-08-03 20:32] VITALS: BP 119/87
[2021-08-03] MEDS: INSULIN LISPRO (LOW DOSE) 100 UNITS/ML SUBCUT SCH (21:00)
[2021-08-03] MEDS: GUAIFENESIN 600MG ER TABLET PO SCH (21:00)
[2021-08-03] MEDS: BLOOD SUGAR DIAGNOSTIC STRIP TEST SCH (21:00)
[2021-08-03] MEDS: ENOXAPARIN 40MG/0.4ML SYR SUBCUT SCH (21:56)
[2021-08-03 22:00] VITALS: BP 132/75
[2021-08-03 22:48] VITALS: BP 101/50
[2021-08-04] VITALS (12 sets, daily range): BP systolic 119–150; BP diastolic 67–86
[2021-08-04] MEDS: METHYLPREDNISOLONE SOD SUCC 40 MG/ML VIAL IV SCH ×3 (00:17→16:59)
[2021-08-04] MEDS: IPRATROPIUM/ALBUTEROL 0.5-3(2.5)MG/3ML NEB HHN SCH ×3 (01:49→09:06)
[2021-08-04] MEDS: BLOOD SUGAR DIAGNOSTIC STRIP TEST SCH ×4 (06:50→21:52)
[2021-08-04 07:01] LABS: CHLORIDE 98 mEq/L (98-107)
[2021-08-04 07:20] LABS: HEMATOCRIT. 35.9 % (36.0-48.0); HEMOGLOBIN. 10.2 g/dL (12.0-16.0); MEAN CORPUSCULAR HEMOGLOBIN 23.2 pg (28.0-32.0); MEAN CORPUSCULAR VOLUME 81.4 fL (81.0-99.0); MEAN PLATELET VOLUME 10.4 fl (7.4-10.4); PLATELET 191 x1000/uL (130-400); RED BLOOD CELL COUNT 4.41 mill/uL (4.2-5.4); RED CELL DISTRIBUTION WIDTH 25.2 % (11.6-14.6)
[2021-08-04] MEDS: INSULIN LISPRO (LOW DOSE) 100 UNITS/ML SUBCUT SCH ×4 (08:29→21:00)
[2021-08-04] MEDS: AMLODIPINE 5MG TABLET PO SCH (08:31)
[2021-08-04] MEDS: GUAIFENESIN 600MG ER TABLET PO SCH ×2 (08:31→21:00)
[2021-08-04] MEDS: FUROSEMIDE 40MG/4ML VIAL IVP SCH (08:31)
[2021-08-04] MEDS: ENOXAPARIN 40MG/0.4ML SYR SUBCUT SCH ×2 (08:32→21:53)
[2021-08-04] MEDS: SPIRONOLACTONE 25MG TABLET PO SCH (08:32)
[2021-08-04 12:40] LABS: BG BASE EXCESS 13.2 mmol/L (-2.0-2.0); BG CARBOXYHEMOGLOBIN 1.1 % (0.5-1.5); BG DEOXYHEMOGLOBIN 0.8 % (0.0-5.0); BG FRACTION INSPIRED OXYGEN 50; BG HCO3 ACT 42.8 mmol/L (22.0-26.0); BG METHEMOGLOBIN 0.3 % (0.0-1.5); BG OXYGEN SATURATION 99.2 % (92.0-98.5); BG OXYHEMOGLOBIN 97.8 % (94.0-97.0); BG PCO2 90.5 mmHg (35.0-45.0); BG PH 7.293 (7.350-7.450); BG PO2 151.5 mmHg (75.0-100.0); BG SAMPLE SITE RIGHT RADIAL; BG TOTAL HEMOGLOBIN 10.8 g/dL (12.0-18.0); BG VENT MODE MASK - BIPAP
[2021-08-04 17:32] LABS: BG CARBOXYHEMOGLOBIN 0.8 % (0.5-1.5); BG DEOXYHEMOGLOBIN 0.5 % (0.0-5.0); BG FRACTION INSPIRED OXYGEN 50; BG METHEMOGLOBIN 0.3 % (0.0-1.5); BG OXYGEN SATURATION 99.5 % (92.0-98.5); BG OXYHEMOGLOBIN 98.4 % (94.0-97.0); BG PH 7.327 (7.350-7.450); BG PO2 197.2 mmHg (75.0-100.0); BG SAMPLE SITE RIGHT RADIAL; BG TOTAL HEMOGLOBIN 10.8 g/dL (12.0-18.0); BG VENT MODE MASK - BIPAP
[2021-08-04 17:39] LABS: PLATELET ESTIMATE NORMAL
[2021-08-04] MEDS: PENICILLIN V POTASSIUM 250MG TABLET PO SCH (17:50)
[2021-08-05] VITALS (12 sets, daily range): BP systolic 129–159; BP diastolic 72–97
[2021-08-05] MEDS: PENICILLIN V POTASSIUM 250MG TABLET PO SCH ×4 (00:20→17:41)
[2021-08-05] MEDS: METHYLPREDNISOLONE SOD SUCC 40 MG/ML VIAL IV SCH ×3 (00:20→17:41)
[2021-08-05] MEDS: IPRATROPIUM/ALBUTEROL 0.5-3(2.5)MG/3ML NEB HHN SCH ×5 (05:34→21:13)
[2021-08-05] MEDS: BLOOD SUGAR DIAGNOSTIC STRIP TEST SCH ×4 (05:44→21:39)
[2021-08-05] MEDS: INSULIN LISPRO (LOW DOSE) 100 UNITS/ML SUBCUT SCH ×4 (07:09→21:00)
[2021-08-05 08:05] LABS: CHLORIDE 94 mEq/L (98-107)
[2021-08-05] MEDS: FUROSEMIDE 40MG/4ML VIAL IVP SCH ×2 (09:22→17:41)
[2021-08-05] MEDS: ENOXAPARIN 40MG/0.4ML SYR SUBCUT SCH ×2 (09:22→21:53)
[2021-08-05] MEDS: AMLODIPINE 5MG TABLET PO SCH (09:23)
[2021-08-05] MEDS: GUAIFENESIN 600MG ER TABLET PO SCH ×2 (09:23→21:53)
[2021-08-05] MEDS: SPIRONOLACTONE 25MG TABLET PO SCH (09:23)
[2021-08-05 14:23] LABS: BG BASE EXCESS 17.1 mmol/L (-2.0-2.0); BG CARBOXYHEMOGLOBIN 1.2 % (0.5-1.5); BG DEOXYHEMOGLOBIN 3.6 % (0.0-5.0); BG FRACTION INSPIRED OXYGEN 32; BG HCO3 ACT 46.5 mmol/L (22.0-26.0); BG METHEMOGLOBIN 0.1 % (0.0-1.5); BG OXYGEN SATURATION 96.4 % (92.0-98.5); BG OXYHEMOGLOBIN 95.1 % (94.0-97.0); BG PCO2 90.5 mmHg (35.0-45.0); BG PH 7.329 (7.350-7.450); BG PO2 89.8 mmHg (75.0-100.0); BG SAMPLE SITE RIGHT RADIAL; BG TOTAL HEMOGLOBIN 10.8 g/dL (12.0-18.0); BG VENT MODE NASAL CANNULA
[2021-08-05] MEDS: SILDENAFIL CITRATE 20MG TABLET PO SCH ×2 (15:27→21:56)
[2021-08-06] VITALS (12 sets, daily range): BP systolic 123–158; BP diastolic 75–97
[2021-08-06] MEDS: PENICILLIN V POTASSIUM 250MG TABLET PO SCH ×4 (00:49→17:09)
[2021-08-06] MEDS: IPRATROPIUM/ALBUTEROL 0.5-3(2.5)MG/3ML NEB HHN SCH ×6 (01:14→21:33)
[2021-08-06] MEDS: BLOOD SUGAR DIAGNOSTIC STRIP TEST SCH ×4 (06:40→20:55)
[2021-08-06] MEDS: FUROSEMIDE 40MG/4ML VIAL IVP SCH ×2 (06:40→17:09)
[2021-08-06] MEDS: SILDENAFIL CITRATE 20MG TABLET PO SCH ×3 (06:40→21:19)
[2021-08-06] MEDS: METHYLPREDNISOLONE SOD SUCC 40 MG/ML VIAL IV SCH ×2 (08:11→17:09)
[2021-08-06] MEDS: GUAIFENESIN 600MG ER TABLET PO SCH ×2 (08:11→21:20)
[2021-08-06] MEDS: INSULIN LISPRO (LOW DOSE) 100 UNITS/ML SUBCUT SCH ×4 (08:11→21:19)
[2021-08-06] MEDS: ENOXAPARIN 40MG/0.4ML SYR SUBCUT SCH ×2 (08:11→21:20)
[2021-08-06] MEDS: AMLODIPINE 5MG TABLET PO SCH (08:11)
[2021-08-06 09:40] LABS: BG BASE EXCESS 19.9 mmol/L (-2.0-2.0); BG CARBOXYHEMOGLOBIN 0.9 % (0.5-1.5); BG DEOXYHEMOGLOBIN 0.6 % (0.0-5.0); BG FRACTION INSPIRED OXYGEN 50; BG HCO3 ACT 48.6 mmol/L (22.0-26.0); BG METHEMOGLOBIN 0.3 % (0.0-1.5); BG OXYGEN SATURATION 99.4 % (92.0-98.5); BG OXYHEMOGLOBIN 98.2 % (94.0-97.0); BG PCO2 81.6 mmHg (35.0-45.0); BG PH 7.393 (7.350-7.450); BG PO2 188.1 mmHg (75.0-100.0); BG SAMPLE SITE RIGHT RADIAL; BG TOTAL HEMOGLOBIN 11.3 g/dL (12.0-18.0); BG TOTAL RESPIRATORY RATE 25 b/min; BG VENT MODE MASK - BIPAP
[2021-08-06 10:46] LABS: BASOPHILS % 0.3 % (0.0-2.0); EOSINOPHILS % 0.1 % (0.0-5.0); HEMOGLOBIN. 10.1 g/dL (12.0-16.0); LYMPHOCYTES % 7.7 % (20.0-50.0); MEAN CORPUSCULAR HEMOGLOBIN 22.9 pg (28.0-32.0); MEAN CORPUSCULAR VOLUME 79.5 fL (81.0-99.0); MEAN PLATELET VOLUME 10.1 fl (7.4-10.4); MONOCYTES % 10.3 % (2.0-8.0); NEUTROPHILS % 81.6 % (40.0-76.0); PLATELET 227 x1000/uL (130-400); RED CELL DISTRIBUTION WIDTH 25.3 % (11.6-14.6)
[2021-08-06 10:53] LABS: CHLORIDE 85 mEq/L (98-107)
[2021-08-06] MEDS ORDERED: FUROSEMIDE 20MG/2ML VIAL IVP NR (13:00)
[2021-08-07] VITALS (13 sets, daily range): BP systolic 99–150; BP diastolic 56–90
[2021-08-07] MEDS: PENICILLIN V POTASSIUM 250MG TABLET PO SCH ×4 (00:18→17:31)
[2021-08-07] MEDS: IPRATROPIUM/ALBUTEROL 0.5-3(2.5)MG/3ML NEB HHN SCH ×6 (01:12→21:26)
[2021-08-07] MEDS: FUROSEMIDE 40MG/4ML VIAL IVP SCH (06:01)
[2021-08-07] MEDS: SILDENAFIL CITRATE 20MG TABLET PO SCH ×3 (06:01→21:11)
[2021-08-07] MEDS: BLOOD SUGAR DIAGNOSTIC STRIP TEST SCH ×4 (06:09→21:00)
[2021-08-07] MEDS: INSULIN LISPRO (LOW DOSE) 100 UNITS/ML SUBCUT SCH ×4 (07:20→21:13)
[2021-08-07] MEDS: GUAIFENESIN 600MG ER TABLET PO SCH ×2 (08:20→21:11)
[2021-08-07] MEDS: METHYLPREDNISOLONE SOD SUCC 40 MG/ML VIAL IV SCH ×2 (08:20→17:30)
[2021-08-07] MEDS: AMLODIPINE 5MG TABLET PO SCH (08:21)
[2021-08-07] MEDS: ENOXAPARIN 40MG/0.4ML SYR SUBCUT SCH ×2 (08:24→21:11)
[2021-08-07 08:33] LABS: BASOPHILS % 1.1 % (0.0-2.0); EOSINOPHILS % 0.2 % (0.0-5.0); HEMATOCRIT. 33.5 % (36.0-48.0); HEMOGLOBIN. 9.9 g/dL (12.0-16.0); MEAN CORPUSCULAR VOLUME 78.2 fL (81.0-99.0); MEAN PLATELET VOLUME 10.3 fl (7.4-10.4); MONOCYTES % 11.1 % (2.0-8.0); NEUTROPHILS % 75.6 % (40.0-76.0); PLATELET 192 x1000/uL (130-400); RED BLOOD CELL COUNT 4.29 mill/uL (4.2-5.4); RED CELL DISTRIBUTION WIDTH 25.2 % (11.6-14.6)
[2021-08-07 08:54] LABS: CHLORIDE 85 mEq/L (98-107)
[2021-08-07 11:27] LABS: BG BASE EXCESS 22.3 mmol/L (-2.0-2.0); BG DEOXYHEMOGLOBIN 6.7 % (0.0-5.0); BG FRACTION INSPIRED OXYGEN 32; BG HCO3 ACT 49.8 mmol/L (22.0-26.0); BG METHEMOGLOBIN 0.1 % (0.0-1.5); BG OXYGEN SATURATION 93.2 % (92.0-98.5); BG OXYHEMOGLOBIN 92.2 % (94.0-97.0); BG PCO2 71.1 mmHg (35.0-45.0); BG PH 7.463 (7.350-7.450); BG PO2 67.1 mmHg (75.0-100.0); BG SAMPLE SITE LEFT BRACHIAL; BG TOTAL HEMOGLOBIN 11.3 g/dL (12.0-18.0); BG VENT MODE NASAL CANNULA
[2021-08-07] MEDS: FAMOTIDINE 20MG TABLET PO SCH (21:11)
[2021-08-08] VITALS (12 sets, daily range): BP systolic 130–158; BP diastolic 65–98
[2021-08-08] MEDS: PENICILLIN V POTASSIUM 250MG TABLET PO SCH ×4 (00:17→21:06)
[2021-08-08] MEDS: IPRATROPIUM/ALBUTEROL 0.5-3(2.5)MG/3ML NEB HHN SCH ×6 (00:50→21:23)
[2021-08-08 04:09] LABS: NEISSERIA GONORRHOEAE NAA Negative (Negative)
[2021-08-08] MEDS: INSULIN LISPRO (LOW DOSE) 100 UNITS/ML SUBCUT SCH ×4 (06:41→21:08)
[2021-08-08] MEDS: SILDENAFIL CITRATE 20MG TABLET PO SCH ×3 (06:41→21:07)
[2021-08-08] MEDS: BLOOD SUGAR DIAGNOSTIC STRIP TEST SCH ×4 (06:41→21:00)
[2021-08-08 07:23] LABS: BASOPHILS % 0.2 % (0.0-2.0); HEMATOCRIT. 34.6 % (36.0-48.0); HEMOGLOBIN. 10.5 g/dL (12.0-16.0); MEAN CORPUSCULAR HEMOGLOBIN 23.5 pg (28.0-32.0); MEAN CORPUSCULAR VOLUME 77.6 fL (81.0-99.0); MEAN PLATELET VOLUME 9.8 fl (7.4-10.4); MONOCYTES % 12.4 % (2.0-8.0); NEUTROPHILS % 74.4 % (40.0-76.0); PLATELET 225 x1000/uL (130-400); RED BLOOD CELL COUNT 4.46 mill/uL (4.2-5.4); RED CELL DISTRIBUTION WIDTH 25.6 % (11.6-14.6)
[2021-08-08 07:28] LABS: CHLORIDE 85 mEq/L (98-107)
[2021-08-08] MEDS: METHYLPREDNISOLONE SOD SUCC 40 MG/ML VIAL IV SCH ×2 (08:13→17:48)
[2021-08-08] MEDS: FAMOTIDINE 20MG TABLET PO SCH ×2 (08:14→21:06)
[2021-08-08] MEDS: FUROSEMIDE 40MG TABLET PO SCH (08:14)
[2021-08-08] MEDS: GUAIFENESIN 600MG ER TABLET PO SCH ×2 (08:14→21:06)
[2021-08-08] MEDS: AMLODIPINE 5MG TABLET PO SCH (08:14)
[2021-08-08] MEDS: ENOXAPARIN 40MG/0.4ML SYR SUBCUT SCH ×2 (08:16→21:06)
[2021-08-08 11:28] LABS: BG BASE EXCESS 17.6 mmol/L (-2.0-2.0); BG CARBOXYHEMOGLOBIN 1.3 % (0.5-1.5); BG DEOXYHEMOGLOBIN 3.6 % (0.0-5.0); BG FRACTION INSPIRED OXYGEN 32; BG HCO3 ACT 43.8 mmol/L (22.0-26.0); BG METHEMOGLOBIN 0.1 % (0.0-1.5); BG OXYGEN SATURATION 96.3 % (92.0-98.5); BG PCO2 59.4 mmHg (35.0-45.0); BG PH 7.486 (7.350-7.450); BG PO2 83.1 mmHg (75.0-100.0); BG SAMPLE SITE LEFT BRACHIAL; BG TOTAL HEMOGLOBIN 11.9 g/dL (12.0-18.0); BG VENT MODE NASAL CANNULA
[2021-08-09] VITALS (7 sets, daily range): BP systolic 131–156; BP diastolic 70–92
[2021-08-09] MEDS: IPRATROPIUM/ALBUTEROL 0.5-3(2.5)MG/3ML NEB HHN SCH ×3 (01:16→09:54)
[2021-08-09] MEDS: SILDENAFIL CITRATE 20MG TABLET PO SCH (06:29)
[2021-08-09] MEDS: INSULIN LISPRO (LOW DOSE) 100 UNITS/ML SUBCUT SCH (06:29)
[2021-08-09] MEDS: BLOOD SUGAR DIAGNOSTIC STRIP TEST SCH (06:29)
[2021-08-09 08:08] LABS: CHLORIDE 89 mEq/L (98-107)
[2021-08-09] MEDS ORDERED: FURO-151 MT (08:53)
[2021-08-09] MEDS ORDERED: GUAI600T44 PO (08:53)
[2021-08-09] MEDS ORDERED: FAMO20TA8 PO (08:53)
[2021-08-09] MEDS ORDERED: P20 MT (08:53)
[2021-08-09] MEDS ORDERED: REV20 PO (08:53)
[2021-08-09] MEDS ORDERED: AMLO5TAB88 PO (08:53)
[2021-08-09] MEDS ORDERED: ALBU6.7H9 INH (08:53)
[2021-08-09] MEDS ORDERED: [UNRECOGNIZED DRUG - OTHER] PO (08:53)
[2021-08-09] MEDS ORDERED: BUDE6HFA INH (08:53)
[2021-08-09] MEDS: AMLODIPINE 5MG TABLET PO SCH (08:59)
[2021-08-09] MEDS: GUAIFENESIN 600MG ER TABLET PO SCH (09:00)
[2021-08-09] MEDS: PENICILLIN V POTASSIUM 250MG TABLET PO SCH (09:00)
[2021-08-09] MEDS: FUROSEMIDE 40MG TABLET PO SCH (09:01)
[2021-08-09] MEDS: METHYLPREDNISOLONE SOD SUCC 40 MG/ML VIAL IV SCH (09:01)
[2021-08-09] MEDS: FAMOTIDINE 20MG TABLET PO SCH (09:01)
[2021-08-09] MEDS: ENOXAPARIN 40MG/0.4ML SYR SUBCUT SCH (09:01)
== END 2021-08-09 11:00 | disposition home or self-care (01) | DRG 720 ==
LOC: ER 11:25 → 3WST 13:24 → EDBEDREQ 13:33 → EDBEDREQSVC 17:35 → EDBEDREQ 17:38 → ENRESERV 17:55
PROVIDERS: ADMIT Internal Medicine; ATTEND Internal Medicine
PROC: 5A09357 Assistance with Respiratory Ventilation, Less than 24 Consecutive Hours, Continuous Positive Airway Pressure (ICD-10-PCS; principal; 2021-08-03)
PROC: 5A09357 Assistance with Respiratory Ventilation, Less than 24 Consecutive Hours, Continuous Positive Airway Pressure (ICD-10-PCS; 2021-08-04)
PROC: 02HV33Z Insertion of Infusion Device into Superior Vena Cava, Percutaneous Approach (ICD-10-PCS; 2021-08-04)
PROC: B548ZZA Ultrasonography of Superior Vena Cava, Guidance (ICD-10-PCS; 2021-08-04)
PROC: 5A09357 Assistance with Respiratory Ventilation, Less than 24 Consecutive Hours, Continuous Positive Airway Pressure (ICD-10-PCS; 2021-08-05)
PROC: 5A09357 Assistance with Respiratory Ventilation, Less than 24 Consecutive Hours, Continuous Positive Airway Pressure (ICD-10-PCS; 2021-08-06)
PROC: 5A09357 Assistance with Respiratory Ventilation, Less than 24 Consecutive Hours, Continuous Positive Airway Pressure (ICD-10-PCS; 2021-08-07)
PROC: 5A09357 Assistance with Respiratory Ventilation, Less than 24 Consecutive Hours, Continuous Positive Airway Pressure (ICD-10-PCS; 2021-08-08)
PROC: 5A09357 Assistance with Respiratory Ventilation, Less than 24 Consecutive Hours, Continuous Positive Airway Pressure (ICD-10-PCS; 2021-08-09)
DX: A41.9 Sepsis, unspecified organism (principal); I50.33 Acute on chronic diastolic (congestive) heart failure; E87.2 Acidosis; J96.01 Acute respiratory failure with hypoxia; I27.20 Pulmonary hypertension, unspecified; J96.02 Acute respiratory failure with hypercapnia; J18.9 Pneumonia, unspecified organism; E44.1 Mild protein-calorie malnutrition; I11.0 Hypertensive heart disease with heart failure; E66.2 Morbid (severe) obesity with alveolar hypoventilation; Z99.81 Dependence on supplemental oxygen; Z68.43 Body mass index [BMI] 50.0-59.9, adult; J44.1 Chronic obstructive pulmonary disease with (acute) exacerbation; F14.10 Cocaine abuse, uncomplicated; F17.210 Nicotine dependence, cigarettes, uncomplicated; K43.9 Ventral hernia without obstruction or gangrene; Z60.2 Problems related to living alone; D64.9 Anemia, unspecified; E87.5 Hyperkalemia; I25.10 Atherosclerotic heart disease of native coronary artery without angina pectoris; J02.0 Streptococcal pharyngitis; Z20.822 Contact with and (suspected) exposure to COVID-19; Z79.51 Long term (current) use of inhaled steroids; Z79.899 Other long term (current) drug therapy; Z71.6 Tobacco abuse counseling; Z71.51 Drug abuse counseling and surveillance of drug abuser
CPT/HCPCS: 36415; 36600; 71045; 76937; 80048; 80053; 80305; 81003; 82375; 82805; 82962; 83605; 83880; 84145; 84443; 84484; 84703; 85025; 86592; 87430; 87491; 87591; 93005; 93306; 93970; 94640; 94660; 99291; C1725; C9803; J1650; J1815; J1940; J2920; J2930; J3475; J3490; U0003; U0005

== ENCOUNTER 2021-10-26 11:08 | Inpatient (IN) | payer MEDICAID, OTHER ==
[~2021-10-26] VITALS: Ht 162.6 cm; Wt 133.8 kg
[~2021-10-26 11:08] MED LIST changes: +AMLO5TAB88 PO; +FAMO20TA8 PO; -GABAPENTIN; +GUAI600T44 PO; -METO-539 MT; -POTA20TA82 PO; +REV20 PO; +[UNRECOGNIZED DRUG - OTHER] PO
[2021-10-26 13:49] LABS: HEMATOCRIT. 37.9 % (36.0-48.0); HEMOGLOBIN. 10.8 g/dL (12.0-16.0); MEAN CORPUSCULAR HEMOGLOBIN 22.9 pg (28.0-32.0); MEAN CORPUSCULAR VOLUME 80.4 fL (81.0-99.0); MEAN PLATELET VOLUME 9.9 fl (7.4-10.4); PLATELET 209 x1000/uL (130-400); RED BLOOD CELL COUNT 4.71 mill/uL (4.2-5.4); RED CELL DISTRIBUTION WIDTH 25.3 % (11.6-14.6)
[2021-10-26 13:57] LABS: CHLORIDE 101 mEq/L (98-107)
[2021-10-26 14:07] LABS: HCG SCREEN NEGATIVE
[2021-10-26 14:33] LABS: PLATELET ESTIMATE NORMAL
[2021-10-26] MEDS ORDERED: METHYLPREDNISOLONE SOD SUCC 125 MG/2 ML VIAL IV STA (14:38)
[2021-10-26] MEDS ORDERED: ALBUTEROL (0.083%) 2.5MG/3ML NEB HHN STA (14:38)
[2021-10-26] MEDS ORDERED: IPRATROPIUM BROMIDE (0.02%) 0.5MG/2.5ML NEB HHN STA (14:38)
[2021-10-26] MEDS ORDERED: FUROSEMIDE 40MG/4ML VIAL IVP ONE (14:45)
[2021-10-26 15:24] LABS: BG BASE EXCESS 8.9 mmol/L (-2.0-2.0); BG CARBOXYHEMOGLOBIN 1.3 % (0.5-1.5); BG DEOXYHEMOGLOBIN 0.5 % (0.0-5.0); BG HCO3 ACT 38.3 mmol/L (22.0-26.0); BG METHEMOGLOBIN 0.4 % (0.0-1.5); BG OXYGEN SATURATION 99.5 % (92.0-98.5); BG OXYHEMOGLOBIN 97.8 % (94.0-97.0); BG PCO2 82.6 mmHg (35.0-45.0); BG PH 7.284 (7.350-7.450); BG PO2 245.5 mmHg (75.0-100.0); BG SAMPLE SITE RIGHT RADIAL; BG TOTAL HEMOGLOBIN 11.9 g/dL (12.0-18.0); BG VENT MODE NASAL CANNULA
[2021-10-26 16:10] LABS: CLARITY URINE CLEAR (CLEAR); COLOR URINE YELLOW (YELLOW); KETONES URINE NEGATIVE (NEGATIVE); LEUKOCYTE ESTERASE URINE NEGATIVE (NEGATIVE); NITRITE URINE NEGATIVE (NEGATIVE); OCCULT BLOOD URINE NEGATIVE (NEGATIVE); PROTEIN URINE NEGATIVE (NEGATIVE); SPECIFIC GRAVITY URINE 1.015 (1.005-1.030)
[2021-10-26 21:35] VITALS: BP 163/113
[2021-10-26 22:00] VITALS: BP 159/94
[2021-10-26] MEDS ORDERED: ACETAMINOPHEN 325MG TABLET PO PRN (23:30)
[2021-10-27] VITALS (12 sets, daily range): BP systolic 119–159; BP diastolic 53–98
[2021-10-27] MEDS: METHYLPREDNISOLONE SOD SUCC 40 MG/ML VIAL IV SCH ×5 (00:28→21:07)
[2021-10-27] MEDS ORDERED: LEVOFLOXACIN 500MG PREMIX 100 ML IV SCH (02:00)
[2021-10-27 05:42] LABS: BASOPHILS % 0.1 % (0.0-2.0); HEMATOCRIT. 38.6 % (36.0-48.0); HEMOGLOBIN. 11.3 g/dL (12.0-16.0); LYMPHOCYTES % 7.7 % (20.0-50.0); MEAN CORPUSCULAR HEMOGLOBIN 23.6 pg (28.0-32.0); MEAN CORPUSCULAR VOLUME 80.6 fL (81.0-99.0); MONOCYTES % 2.3 % (2.0-8.0); NEUTROPHILS % 89.9 % (40.0-76.0); RED BLOOD CELL COUNT 4.79 mill/uL (4.2-5.4); RED CELL DISTRIBUTION WIDTH 25.3 % (11.6-14.6)
[2021-10-27 06:10] LABS: CHLORIDE 97 mEq/L (98-107)
[2021-10-27] MEDS ORDERED: LIDOCAINE HCL 1% 20ML VIAL (Pyxis) INJ ONE (08:00)
[2021-10-27] MEDS: ENOXAPARIN 40MG/0.4ML SYR SUBCUT SCH ×3 (09:00→21:07)
[2021-10-27] MEDS: LISINOPRIL 20MG TABLET PO SCH (09:35)
[2021-10-27] MEDS: FUROSEMIDE 40MG/4ML VIAL IVP SCH ×2 (09:35→17:35)
[2021-10-27] MEDS: GUAIFENESIN/DM 600MG/30MG ER TAB 12HR PO SCH ×2 (09:36→21:09)
[2021-10-27] MEDS: CARVEDILOL 3.125 MG TABLET PO SCH ×2 (09:36→17:35)
[2021-10-27] MEDS: PANTOPRAZOLE SODIUM 40 MG/VIAL IV SCH (09:38)
[2021-10-27] MEDS: AMLODIPINE 10MG TABLET PO SCH (09:38)
[2021-10-27 10:28] LABS: PLATELET 217 x1000/uL (130-400)
[2021-10-27] MEDS: IPRATROPIUM/ALBUTEROL 0.5-3(2.5)MG/3ML NEB HHN SCH ×4 (11:18→20:25)
[2021-10-27] MEDS: LEVOFLOXACIN 500MG PREMIX 100 ML IV SCH (12:42)
[2021-10-27] MEDS: SILDENAFIL CITRATE 20MG TABLET PO SCH (21:07)
[2021-10-28] VITALS (13 sets, daily range): BP systolic 92–138; BP diastolic 49–91
[2021-10-28] MEDS: IPRATROPIUM/ALBUTEROL 0.5-3(2.5)MG/3ML NEB HHN SCH ×6 (00:51→20:31)
[2021-10-28] MEDS: SILDENAFIL CITRATE 20MG TABLET PO SCH ×3 (05:29→20:39)
[2021-10-28 06:22] LABS: BASOPHILS % 0.2 % (0.0-2.0); EOSINOPHILS % 0.1 % (0.0-5.0); HEMATOCRIT. 37.5 % (36.0-48.0); LYMPHOCYTES % 9.7 % (20.0-50.0); MEAN CORPUSCULAR HEMOGLOBIN 23.4 pg (28.0-32.0); MEAN CORPUSCULAR VOLUME 79.9 fL (81.0-99.0); MEAN PLATELET VOLUME 10.8 fl (7.4-10.4); MONOCYTES % 8.1 % (2.0-8.0); NEUTROPHILS % 81.9 % (40.0-76.0); PLATELET 228 x1000/uL (130-400); RED CELL DISTRIBUTION WIDTH 25.4 % (11.6-14.6)
[2021-10-28 06:48] LABS: CHLORIDE 92 mEq/L (98-107)
[2021-10-28] MEDS: ENOXAPARIN 40MG/0.4ML SYR SUBCUT SCH ×3 (09:00→20:41)
[2021-10-28] MEDS: GUAIFENESIN/DM 600MG/30MG ER TAB 12HR PO SCH ×2 (09:14→20:38)
[2021-10-28] MEDS: METHYLPREDNISOLONE SOD SUCC 40 MG/ML VIAL IV SCH ×3 (09:15→22:29)
[2021-10-28] MEDS: PANTOPRAZOLE SODIUM 40 MG/VIAL IV SCH (09:15)
[2021-10-28] MEDS: LISINOPRIL 20MG TABLET PO SCH (09:15)
[2021-10-28] MEDS: FUROSEMIDE 40MG/4ML VIAL IVP SCH ×2 (09:15→17:19)
[2021-10-28] MEDS: AMLODIPINE 10MG TABLET PO SCH (09:15)
[2021-10-28] MEDS: CARVEDILOL 3.125 MG TABLET PO SCH ×2 (09:43→16:45)
[2021-10-28] MEDS ORDERED: IPRATROPIUM/ALBUTEROL 0.5-3(2.5)MG/3ML NEB HHN PRN (10:45)
[2021-10-28] MEDS: LEVOFLOXACIN 500MG PREMIX 100 ML IV SCH (12:27)
[2021-10-28 18:13] LABS: *BARBITURATES SCREEN URINE NEGATIVE (NEGATIVE); *BENZODIAZEPINES SCREEN URINE NEGATIVE (NEGATIVE); *COCAINE SCREEN URINE PRESUMTIVE POSITIVE (NEGATIVE); CANNABINOID URINE SCREEN NEGATIVE (NEGATIVE); METHADONE URINE SCREEN NEGATIVE (NEGATIVE); OPIATES URINE SCREEN PRESUMTIVE POSITIVE (NEGATIVE); PHENCYCLIDINE URINE SCREEN NEGATIVE (NEGATIVE)
[2021-10-28 18:14] LABS: *AMPHETAMINES SCREEN URINE NEGATIVE (NEGATIVE)
[2021-10-29] VITALS (7 sets, daily range): BP systolic 100–147; BP diastolic 65–87
[2021-10-29] MEDS: IPRATROPIUM/ALBUTEROL 0.5-3(2.5)MG/3ML NEB HHN SCH ×4 (00:39→12:38)
[2021-10-29] MEDS: SILDENAFIL CITRATE 20MG TABLET PO SCH (05:18)
[2021-10-29] MEDS: METHYLPREDNISOLONE SOD SUCC 40 MG/ML VIAL IV SCH (08:29)
[2021-10-29] MEDS: ENOXAPARIN 40MG/0.4ML SYR SUBCUT SCH (08:29)
[2021-10-29] MEDS: AMLODIPINE 10MG TABLET PO SCH (08:29)
[2021-10-29] MEDS: FUROSEMIDE 40MG/4ML VIAL IVP SCH (08:29)
[2021-10-29] MEDS: CARVEDILOL 3.125 MG TABLET PO SCH (08:29)
[2021-10-29] MEDS: LISINOPRIL 20MG TABLET PO SCH (08:30)
[2021-10-29] MEDS: GUAIFENESIN/DM 600MG/30MG ER TAB 12HR PO SCH (08:34)
[2021-10-29] MEDS ORDERED: FAMOTIDINE 20MG TABLET PO SCH (09:00)
[2021-10-29] MEDS ORDERED: P20 MT (11:02)
== END 2021-10-29 15:56 | disposition home or self-care (01) | DRG 720 ==
LOC: ER 11:08 → EDBEDREQ 17:08 → ENRESERV 20:39 → 5EST 21:33
PROVIDERS: ADMIT Internal Medicine; ATTEND Internal Medicine
PROC: 5A09357 Assistance with Respiratory Ventilation, Less than 24 Consecutive Hours, Continuous Positive Airway Pressure (ICD-10-PCS; principal; 2021-10-26)
PROC: 5A09357 Assistance with Respiratory Ventilation, Less than 24 Consecutive Hours, Continuous Positive Airway Pressure (ICD-10-PCS; 2021-10-27)
PROC: B54MZZA Ultrasonography of Right Upper Extremity Veins, Guidance (ICD-10-PCS; 2021-10-27)
PROC: 05HY33Z Insertion of Infusion Device into Upper Vein, Percutaneous Approach (ICD-10-PCS; 2021-10-27)
PROC: 5A09357 Assistance with Respiratory Ventilation, Less than 24 Consecutive Hours, Continuous Positive Airway Pressure (ICD-10-PCS; 2021-10-28)
PROC: 5A09357 Assistance with Respiratory Ventilation, Less than 24 Consecutive Hours, Continuous Positive Airway Pressure (ICD-10-PCS; 2021-10-29)
DX: A41.9 Sepsis, unspecified organism (principal); J96.21 Acute and chronic respiratory failure with hypoxia; I50.33 Acute on chronic diastolic (congestive) heart failure; E44.1 Mild protein-calorie malnutrition; I27.20 Pulmonary hypertension, unspecified; J44.0 Chronic obstructive pulmonary disease with (acute) lower respiratory infection; Z68.43 Body mass index [BMI] 50.0-59.9, adult; J68.0 Bronchitis and pneumonitis due to chemicals, gases, fumes and vapors; T59.891A Toxic effect of other specified gases, fumes and vapors, accidental (unintentional), initial encounter; Z20.822 Contact with and (suspected) exposure to COVID-19; I11.0 Hypertensive heart disease with heart failure; J96.22 Acute and chronic respiratory failure with hypercapnia; J44.1 Chronic obstructive pulmonary disease with (acute) exacerbation; F17.210 Nicotine dependence, cigarettes, uncomplicated; E66.01 Morbid (severe) obesity due to excess calories; F14.10 Cocaine abuse, uncomplicated; Z99.81 Dependence on supplemental oxygen; Y92.89 Other specified places as the place of occurrence of the external cause; Z79.899 Other long term (current) drug therapy; Z71.51 Drug abuse counseling and surveillance of drug abuser; Z71.6 Tobacco abuse counseling; Z71.3 Dietary counseling and surveillance
CPT/HCPCS: 36415; 36600; 71045; 76937; 80048; 80053; 80305; 81003; 82375; 82805; 83880; 84484; 84703; 85025; 87426; 93005; 93306; 94640; 99285; C1725; C9113; J1650; J1940; J1956; J2920; J2930; J3490

== ENCOUNTER 2022-01-02 02:41 | Inpatient (IN) | payer MEDICAID, OTHER ==
[~2022-01-02] VITALS: Ht 157.5 cm; Wt 132.0 kg
[~2022-01-02 02:41] MED LIST changes: +IPRA3AMP9 NEB; +METR-167 PO; -[UNRECOGNIZED DRUG - OTHER] PO
[2022-01-02] MEDS ORDERED: METHYLPREDNISOLONE SOD SUCC 125 MG/2 ML VIAL IV STA (03:27)
[2022-01-02] MEDS ORDERED: IPRATROPIUM/ALBUTEROL 0.5-3(2.5)MG/3ML NEB HHN ONE ×2 (03:30→04:45)
[2022-01-02 04:17] LABS: BASOPHILS % 1.2 % (0.0-2.0); EOSINOPHILS % 2.3 % (0.0-5.0); HEMATOCRIT. 38.2 % (36.0-48.0); HEMOGLOBIN. 11.1 g/dL (12.0-16.0); LYMPHOCYTES % 18.5 % (20.0-50.0); MEAN CORPUSCULAR HEMOGLOBIN 23.9 pg (28.0-32.0); MEAN CORPUSCULAR VOLUME 82.7 fL (81.0-99.0); MEAN PLATELET VOLUME 10.7 fl (7.4-10.4); MONOCYTES % 10.1 % (2.0-8.0); NEUTROPHILS % 67.9 % (40.0-76.0); PLATELET 253 x1000/uL (130-400); RED BLOOD CELL COUNT 4.62 mill/uL (4.2-5.4); RED CELL DISTRIBUTION WIDTH 25.1 % (11.6-14.6)
[2022-01-02 04:23] LABS: CHLORIDE 100 mEq/L (98-107)
[2022-01-02] MEDS ORDERED: MAGNESIUM 2 G PREMIX 50 ML IV ONE (04:45)
[2022-01-02] MEDS ORDERED: ALBUTEROL (0.5%) 2.5MG/0.5ML NEB HHN ONE (04:45)
[2022-01-02 05:10] LABS: PLATELET ESTIMATE NORMAL
[2022-01-02] MEDS: IPRATROPIUM/ALBUTEROL 0.5-3(2.5)MG/3ML NEB HHN SCH ×2 (11:55→20:38)
[2022-01-02] MEDS ORDERED: ONDANSETRON HCL 4MG/2ML INJ IV PRN (12:00)
[2022-01-02] MEDS ORDERED: ACETAMINOPHEN 325MG TABLET PO PRN (12:00)
[2022-01-02] MEDS: METHYLPREDNISOLONE SOD SUCC 40 MG/ML VIAL IV SCH ×2 (13:26→22:17)
[2022-01-02] MEDS: FAMOTIDINE 20MG TABLET PO SCH (22:17)
[2022-01-02] MEDS: HYDROCODONE/ACETAMINOPHEN 5/325MG TABLET PO PRN (22:18)
[2022-01-03] MEDS: IPRATROPIUM/ALBUTEROL 0.5-3(2.5)MG/3ML NEB HHN SCH ×6 (00:44→20:00)
[2022-01-03] MEDS: METHYLPREDNISOLONE SOD SUCC 40 MG/ML VIAL IV SCH ×3 (05:25→21:21)
[2022-01-03 10:39] VITALS: BP 100/78
[2022-01-03 10:54] LABS: BG BASE EXCESS 9.1 mmol/L (-2.0-2.0); BG CARBOXYHEMOGLOBIN 1.3 % (0.5-1.5); BG DEOXYHEMOGLOBIN 8.4 % (0.0-5.0); BG FRACTION INSPIRED OXYGEN 28; BG HCO3 ACT 36.1 mmol/L (22.0-26.0); BG METHEMOGLOBIN 0.3 % (0.0-1.5); BG OXYGEN SATURATION 91.5 % (92.0-98.5); BG PCO2 61.8 mmHg (35.0-45.0); BG PH 7.384 (7.350-7.450); BG PO2 61.8 mmHg (75.0-100.0); BG SAMPLE SITE RIGHT RADIAL; BG TOTAL HEMOGLOBIN 11.9 g/dL (12.0-18.0); BG VENT MODE NASAL CANNULA
[2022-01-03 11:35] VITALS: BP 110/82
[2022-01-03] MEDS ORDERED: NALOXONE HCL 0.4MG/ML VIAL IV PRN (14:45)
[2022-01-03] MEDS ORDERED: KETOROLAC 15MG/ML VIAL IV PRN (14:45)
[2022-01-03 16:30] VITALS: BP 94/46
[2022-01-03 20:00] VITALS: BP 115/62
[2022-01-03] MEDS ORDERED: CLOTRIMAZOLE 1% VAGINAL CREAM 45GM VG SCH (21:00)
[2022-01-03] MEDS: FAMOTIDINE 20MG TABLET PO SCH (21:21)
[2022-01-03] MEDS: HYDROCODONE/ACETAMINOPHEN 5/325MG TABLET PO PRN (21:22)
[2022-01-04] VITALS: BP 130/70
[2022-01-04] MEDS: IPRATROPIUM/ALBUTEROL 0.5-3(2.5)MG/3ML NEB HHN SCH ×5 (00:03→17:05)
[2022-01-04 04:00] VITALS: BP 135/80
[2022-01-04] MEDS: METHYLPREDNISOLONE SOD SUCC 40 MG/ML VIAL IV SCH ×2 (05:15→17:55)
[2022-01-04 08:00] VITALS: BP 128/75
[2022-01-04] MEDS: GUAIFENESIN-DM 200MG-20MG/10ML UDC PO PRN ×2 (11:06→17:55)
[2022-01-04 12:00] VITALS: BP 132/78
[2022-01-04 16:00] VITALS: BP 119/79
[2022-01-04 18:22] VITALS: BP 125/76
== END 2022-01-04 19:38 | disposition home or self-care (01) | DRG 816 ==
LOC: ER 02:41 → MICUSO 05:35 → EDBEDREQSVC 19:19 → 6WST 01-03 10:00
PROVIDERS: ADMIT Internal Medicine; ATTEND Internal Medicine
PROC: 5A09357 Assistance with Respiratory Ventilation, Less than 24 Consecutive Hours, Continuous Positive Airway Pressure (ICD-10-PCS; principal; 2022-01-03)
DX: T40.5X1A Poisoning by cocaine, accidental (unintentional), initial encounter (principal); J96.21 Acute and chronic respiratory failure with hypoxia; E44.0 Moderate protein-calorie malnutrition; J68.0 Bronchitis and pneumonitis due to chemicals, gases, fumes and vapors; I50.32 Chronic diastolic (congestive) heart failure; E66.01 Morbid (severe) obesity due to excess calories; F17.210 Nicotine dependence, cigarettes, uncomplicated; Z20.822 Contact with and (suspected) exposure to COVID-19; I11.0 Hypertensive heart disease with heart failure; Z60.2 Problems related to living alone; J96.22 Acute and chronic respiratory failure with hypercapnia; Z99.81 Dependence on supplemental oxygen; Y92.89 Other specified places as the place of occurrence of the external cause; Z68.43 Body mass index [BMI] 50.0-59.9, adult; Z79.899 Other long term (current) drug therapy; Z71.3 Dietary counseling and surveillance; Z71.6 Tobacco abuse counseling; F14.10 Cocaine abuse, uncomplicated; Z71.51 Drug abuse counseling and surveillance of drug abuser
CPT/HCPCS: 36415; 36600; 71045; 80053; 82375; 82805; 83880; 84484; 85025; 87426; 93005; 94640; 94660; 99285; J2920; J2930; J3475

== ENCOUNTER 2022-02-17 15:07 | Inpatient (IN) | payer MEDICAID, OTHER ==
[~2022-02-17] VITALS: Ht 157.5 cm; Wt 126.8 kg
[2022-02-17] MEDS ORDERED: ALBUTEROL (0.083%) 2.5MG/3ML NEB HHN STA (15:10)
[2022-02-17] MEDS ORDERED: METHYLPREDNISOLONE SOD SUCC 125 MG/2 ML VIAL IV STA (15:10)
[2022-02-17] MEDS ORDERED: IPRATROPIUM BROMIDE (0.02%) 0.5MG/2.5ML NEB HHN STA (15:10)
[2022-02-17] MEDS ORDERED: CEFTRIAXONE 1 G PREMIX 50 ML IV ONE (15:15)
[2022-02-17] MEDS ORDERED: AZITHROMYCIN 500MG/250ML 250 ML IV ONE (15:15)
[2022-02-17 15:39] LABS: BG BASE EXCESS 6.7 mmol/L (-2.0-2.0); BG CARBOXYHEMOGLOBIN 1.8 % (0.5-1.5); BG DEOXYHEMOGLOBIN 11.7 % (0.0-5.0); BG FRACTION INSPIRED OXYGEN 100; BG HCO3 ACT 35.9 mmol/L (22.0-26.0); BG METHEMOGLOBIN 0.3 % (0.0-1.5); BG OXYHEMOGLOBIN 86.2 % (94.0-97.0); BG PCO2 79.3 mmHg (35.0-45.0); BG PH 7.274 (7.350-7.450); BG PO2 66.3 mmHg (75.0-100.0); BG SAMPLE SITE RIGHT RADIAL; BG TOTAL HEMOGLOBIN 11.7 g/dL (12.0-18.0); BG VENT MODE MASK - BIPAP
[2022-02-17 15:53] LABS: BASOPHILS % 0.8 % (0.0-2.0); EOSINOPHILS % 1.7 % (0.0-5.0); HEMATOCRIT. 36.2 % (36.0-48.0); HEMOGLOBIN. 10.8 g/dL (12.0-16.0); LYMPHOCYTES % 17.9 % (20.0-50.0); MEAN CORPUSCULAR HEMOGLOBIN 24.7 pg (28.0-32.0); MEAN CORPUSCULAR VOLUME 82.7 fL (81.0-99.0); MEAN PLATELET VOLUME 10.2 fl (7.4-10.4); MONOCYTES % 11.3 % (2.0-8.0); NEUTROPHILS % 68.3 % (40.0-76.0); PLATELET 201 x1000/uL (130-400); RED BLOOD CELL COUNT 4.38 mill/uL (4.2-5.4); RED CELL DISTRIBUTION WIDTH 25.3 % (11.6-14.6)
[2022-02-17 16:34] LABS: PLATELET ESTIMATE NORMAL
[2022-02-17] MEDS ORDERED: METHYLPREDNISOLONE SOD SUCC 125 MG/2 ML VIAL IV NR (16:53)
[2022-02-17] MEDS ORDERED: FUROSEMIDE 40MG/4ML VIAL IVP NR (18:00)
[2022-02-17] MEDS ORDERED: NITROGLYCERIN 0.4MG/HR PATCH TOP ONE (18:00)
[2022-02-17 18:11] LABS: CHLORIDE 102 mEq/L (98-107)
[2022-02-17] MEDS ORDERED: NITROGLYCERIN 0.4MG/HR PATCH TOP NR (18:45)
[2022-02-17] MEDS ORDERED: IPRATROPIUM/ALBUTEROL 0.5-3(2.5)MG/3ML NEB HHN PRN (20:45)
[2022-02-17] MEDS: FUROSEMIDE 40MG/4ML VIAL IVP SCH (21:00)
[2022-02-17] MEDS: METHYLPREDNISOLONE SOD SUCC 125 MG/2 ML VIAL IV SCH (22:00)
[2022-02-17 22:07] LABS: CLARITY URINE CLEAR (CLEAR); COLOR URINE YELLOW (YELLOW); KETONES URINE NEGATIVE (NEGATIVE); LEUKOCYTE ESTERASE URINE NEGATIVE (NEGATIVE); NITRITE URINE NEGATIVE (NEGATIVE); OCCULT BLOOD URINE 2+ (NEGATIVE); PROTEIN URINE NEGATIVE (NEGATIVE); SPECIFIC GRAVITY URINE 1.005 (1.005-1.030); UROBILINOGEN URINE 0.2 E.U./dL (0.2-1.0)
[2022-02-17 22:50] LABS: *AMPHETAMINES SCREEN URINE NEGATIVE (NEGATIVE); *BARBITURATES SCREEN URINE NEGATIVE (NEGATIVE); *BENZODIAZEPINES SCREEN URINE NEGATIVE (NEGATIVE); *COCAINE SCREEN URINE PRESUMTIVE POSITIVE (NEGATIVE); CANNABINOID URINE SCREEN NEGATIVE (NEGATIVE); METHADONE URINE SCREEN NEGATIVE (NEGATIVE); OPIATES URINE SCREEN NEGATIVE (NEGATIVE); PHENCYCLIDINE URINE SCREEN NEGATIVE (NEGATIVE)
[2022-02-17] MEDS: IPRATROPIUM/ALBUTEROL 0.5-3(2.5)MG/3ML NEB HHN SCH (23:01)
[2022-02-18] VITALS (10 sets, daily range): BP systolic 118–154; BP diastolic 62–101
[2022-02-18] MEDS ORDERED: ONDANSETRON HCL 4MG/2ML INJ IV PRN (05:15)
[2022-02-18] MEDS ORDERED: ACETAMINOPHEN 325MG TABLET PO PRN (05:15)
[2022-02-18] MEDS: METHYLPREDNISOLONE SOD SUCC 125 MG/2 ML VIAL IV SCH ×4 (07:04→21:47)
[2022-02-18] MEDS: SILDENAFIL CITRATE 20MG TABLET PO SCH ×3 (07:07→21:48)
[2022-02-18 08:15] LABS: HEMATOCRIT. 40.2 % (36.0-48.0); HEMOGLOBIN. 11.4 g/dL (12.0-16.0); MEAN CORPUSCULAR HEMOGLOBIN 24.1 pg (28.0-32.0); MEAN CORPUSCULAR VOLUME 84.5 fL (81.0-99.0); MEAN PLATELET VOLUME 11.2 fl (7.4-10.4); PLATELET 216 x1000/uL (130-400); RED BLOOD CELL COUNT 4.75 mill/uL (4.2-5.4); RED CELL DISTRIBUTION WIDTH 25.4 % (11.6-14.6)
[2022-02-18 08:19] LABS: BG CARBOXYHEMOGLOBIN 1.2 % (0.5-1.5); BG DEOXYHEMOGLOBIN 16.5 % (0.0-5.0); BG FRACTION INSPIRED OXYGEN 100; BG HCO3 ACT 43.4 mmol/L (22.0-26.0); BG METHEMOGLOBIN 0.3 % (0.0-1.5); BG OXYGEN SATURATION 83.2 % (92.0-98.5); BG PCO2 105.6 mmHg (35.0-45.0); BG PH 7.232 (7.350-7.450); BG PO2 55.9 mmHg (75.0-100.0); BG TOTAL HEMOGLOBIN 12.1 g/dL (12.0-18.0); BG VENT MODE MASK - NRB
[2022-02-18 08:33] LABS: CHLORIDE 97 mEq/L (98-107)
[2022-02-18 08:40] LABS: HDL CHOLESTEROL 75 mg/dL (40-59); LDL CHOLESTEROL 54 mg/dL (5-100)
[2022-02-18] MEDS: AMLODIPINE 10MG TABLET PO SCH (08:59)
[2022-02-18] MEDS: ENOXAPARIN 40MG/0.4ML SYR SUBCUT SCH ×2 (09:00→21:00)
[2022-02-18] MEDS: FUROSEMIDE 40MG/4ML VIAL IVP SCH ×2 (09:00→17:00)
[2022-02-18] MEDS ORDERED: ENOXAPARIN 40MG/0.4ML SYR SUBCUT SCH (09:00)
[2022-02-18] MEDS: IPRATROPIUM/ALBUTEROL 0.5-3(2.5)MG/3ML NEB HHN SCH ×4 (10:20→20:16)
[2022-02-18 11:45] LABS: PLATELET ESTIMATE NORMAL
[2022-02-18 14:14] LABS: BG BASE EXCESS 14.1 mmol/L (-2.0-2.0); BG CARBOXYHEMOGLOBIN 1.1 % (0.5-1.5); BG HCO3 ACT 42.3 mmol/L (22.0-26.0); BG METHEMOGLOBIN 0.1 % (0.0-1.5); BG OXYGEN SATURATION 87.9 % (92.0-98.5); BG OXYHEMOGLOBIN 86.8 % (94.0-97.0); BG PCO2 74.2 mmHg (35.0-45.0); BG PH 7.374 (7.350-7.450); BG PO2 57.3 mmHg (75.0-100.0); BG SAMPLE SITE RIGHT RADIAL; BG TOTAL HEMOGLOBIN 11.9 g/dL (12.0-18.0); BG VENT MODE MASK - BIPAP
[2022-02-19] VITALS: BP 143/80
[2022-02-19] MEDS: IPRATROPIUM/ALBUTEROL 0.5-3(2.5)MG/3ML NEB HHN SCH ×4 (00:21→13:39)
[2022-02-19 02:00] VITALS: BP 147/86
[2022-02-19 04:00] VITALS: BP 140/77
[2022-02-19 06:00] VITALS: BP 150/88
[2022-02-19] MEDS: SILDENAFIL CITRATE 20MG TABLET PO SCH ×2 (06:29→14:08)
[2022-02-19] MEDS: METHYLPREDNISOLONE SOD SUCC 125 MG/2 ML VIAL IV SCH ×2 (06:30→14:08)
[2022-02-19 07:19] LABS: CHLORIDE 95 mEq/L (98-107)
[2022-02-19 08:11] VITALS: BP 154/81
[2022-02-19] MEDS: ENOXAPARIN 40MG/0.4ML SYR SUBCUT SCH (08:36)
[2022-02-19] MEDS: AMLODIPINE 10MG TABLET PO SCH (08:46)
[2022-02-19] MEDS: FUROSEMIDE 40MG/4ML VIAL IVP SCH (08:46)
[2022-02-19] MEDS ORDERED: AMLO10TA80 PO (13:00)
[2022-02-19] MEDS ORDERED: ALBU6.7H9 INH (13:00)
[2022-02-19] MEDS ORDERED: P20 MT (13:00)
[2022-02-19] MEDS ORDERED: BUDE6HFA INH (13:00)
[2022-02-19] MEDS ORDERED: REV20 PO (13:00)
[2022-02-19] MEDS ORDERED: FURO-151 MT (13:00)
[2022-02-19 14:02] VITALS: BP 156/88
== END 2022-02-19 14:55 | disposition home or self-care (01) | DRG 194 ==
LOC: ER 15:07 → MICUSO 17:45 → EDBEDREQ 17:49 → EDBEDREQTM 17:49 → EDBEDREQSVC 18:37 → CANRESERV 19:27 → ENRESERV 19:27 → EDBEDREQSVC 20:32 → EDBEDREQTM 22:27 → EDBEDREQSVC 02-18 00:21 → 3WST 02-18 02:34
PROVIDERS: ADMIT Internal Medicine; ATTEND Internal Medicine
PROC: 5A09357 Assistance with Respiratory Ventilation, Less than 24 Consecutive Hours, Continuous Positive Airway Pressure (ICD-10-PCS; 2022-02-17)
PROC: 05HY33Z Insertion of Infusion Device into Upper Vein, Percutaneous Approach (ICD-10-PCS; principal; 2022-02-18)
PROC: 5A09357 Assistance with Respiratory Ventilation, Less than 24 Consecutive Hours, Continuous Positive Airway Pressure (ICD-10-PCS; 2022-02-18)
PROC: B54MZZA Ultrasonography of Right Upper Extremity Veins, Guidance (ICD-10-PCS; 2022-02-18)
PROC: 5A09357 Assistance with Respiratory Ventilation, Less than 24 Consecutive Hours, Continuous Positive Airway Pressure (ICD-10-PCS; 2022-02-19)
DX: I11.0 Hypertensive heart disease with heart failure (principal); J96.21 Acute and chronic respiratory failure with hypoxia; I27.20 Pulmonary hypertension, unspecified; E44.1 Mild protein-calorie malnutrition; E66.2 Morbid (severe) obesity with alveolar hypoventilation; J44.1 Chronic obstructive pulmonary disease with (acute) exacerbation; Z68.43 Body mass index [BMI] 50.0-59.9, adult; I50.33 Acute on chronic diastolic (congestive) heart failure; J68.0 Bronchitis and pneumonitis due to chemicals, gases, fumes and vapors; J96.22 Acute and chronic respiratory failure with hypercapnia; F17.210 Nicotine dependence, cigarettes, uncomplicated; F14.90 Cocaine use, unspecified, uncomplicated; Z99.81 Dependence on supplemental oxygen; T59.891A Toxic effect of other specified gases, fumes and vapors, accidental (unintentional), initial encounter; Y92.89 Other specified places as the place of occurrence of the external cause; Z91.19 Patient's noncompliance with other medical treatment and regimen
CPT/HCPCS: 36415; 36573; 36600; 71045; 80048; 80053; 80061; 80305; 81003; 82375; 82805; 83605; 83880; 84145; 84484; 85025; 93005; 94640; 94660; 99291; C1725; C1887; J0456; J0696; J1650; J1940; J2930

== ENCOUNTER 2022-03-28 01:07 | Inpatient (IN) | payer MEDICAID, OTHER ==
[~2022-03-28] VITALS: Ht 157.5 cm; Wt 133.5 kg
[2022-03-28] VITALS (7 sets, daily range): BP systolic 132–188; BP diastolic 70–120
[~2022-03-28 01:07] MED LIST changes: +AMLO10TA80 PO; -METR-167 PO
[2022-03-28] MEDS ORDERED: METHYLPREDNISOLONE SOD SUCC 125 MG/2 ML VIAL IV STA (01:12)
[2022-03-28] MEDS ORDERED: FUROSEMIDE 40MG/4ML VIAL IV ONE (01:15)
[2022-03-28] MEDS: ALBUTEROL (0.083%) 2.5MG/3ML NEB HHN SCH ×3 (01:18→02:14)
[2022-03-28 01:53] LABS: BASOPHILS % 0.8 % (0.0-2.0); EOSINOPHILS % 0.7 % (0.0-5.0); HEMOGLOBIN. 10.9 g/dL (12.0-16.0); LYMPHOCYTES % 15.4 % (20.0-50.0); MEAN CORPUSCULAR HEMOGLOBIN 24.4 pg (28.0-32.0); MEAN CORPUSCULAR VOLUME 85.1 fL (81.0-99.0); MONOCYTES % 8.9 % (2.0-8.0); NEUTROPHILS % 74.2 % (40.0-76.0); PLATELET 219 x1000/uL (130-400); RED BLOOD CELL COUNT 4.47 mill/uL (4.2-5.4); RED CELL DISTRIBUTION WIDTH 23.8 % (11.6-14.6)
[2022-03-28 01:58] LABS: CHLORIDE 97 mEq/L (98-107)
[2022-03-28 02:50] LABS: PLATELET ESTIMATE NORMAL
[2022-03-28] MEDS ORDERED: AZITHROMYCIN 500MG/250ML 250 ML IV ONE (04:45)
[2022-03-28] MEDS ORDERED: CEFTRIAXONE 2 G PREMIX 50 ML IV ONE (04:45)
[2022-03-28] MEDS ORDERED: ONDANSETRON HCL 4MG/2ML INJ IV PRN (07:45)
[2022-03-28] MEDS ORDERED: HYDROCODONE/ACETAMINOPHEN 5/325MG TABLET PO PRN (07:45)
[2022-03-28] MEDS ORDERED: ACETAMINOPHEN 325MG TABLET PO PRN ×2 (07:45)
[2022-03-28] MEDS ORDERED: GUAIFENESIN 200MG/10ML SUGAR FREE UDC PO PRN (07:45)
[2022-03-28] MEDS ORDERED: IPRATROPIUM/ALBUTEROL 0.5-3(2.5)MG/3ML NEB NEB PRN (07:45)
[2022-03-28] MEDS ORDERED: MAGNESIUM/ALUMINUM HYDROXIDE/SIMETHICONE 30ML UDC PO PRN (07:45)
[2022-03-28] MEDS ORDERED: CLONIDINE 0.1MG TABLET PO PRN (07:45)
[2022-03-28] MEDS: ENOXAPARIN 40MG/0.4ML SYR SUBCUT SCH ×2 (09:30→21:58)
[2022-03-28] MEDS: IPRATROPIUM/ALBUTEROL 0.5-3(2.5)MG/3ML NEB NEB SCH ×4 (09:45→20:36)
[2022-03-28 09:58] LABS: BG BASE EXCESS 5.8 mmol/L (-2.0-2.0); BG CARBOXYHEMOGLOBIN 2.2 % (0.5-1.5); BG DEOXYHEMOGLOBIN 14.4 % (0.0-5.0); BG FRACTION INSPIRED OXYGEN 44; BG HCO3 ACT 37.3 mmol/L (22.0-26.0); BG METHEMOGLOBIN 0.2 % (0.0-1.5); BG OXYGEN SATURATION 85.2 % (92.0-98.5); BG OXYHEMOGLOBIN 83.2 % (94.0-97.0); BG PCO2 97.4 mmHg (35.0-45.0); BG PH 7.201 (7.350-7.450); BG PO2 64.5 mmHg (75.0-100.0); BG SAMPLE SITE RIGHT RADIAL; BG TOTAL HEMOGLOBIN 13.4 g/dL (12.0-18.0); BG VENT MODE NASAL CANNULA
[2022-03-28] MEDS ORDERED: HYDRALAZINE 20MG/ML VIAL IV PRN (11:00)
[2022-03-28] MEDS ORDERED: PREDNISONE 20MG TABLET PO SCH (11:15)
[2022-03-28 14:31] LABS: CLARITY URINE CLEAR (CLEAR); COLOR URINE YELLOW (YELLOW); KETONES URINE TRACE (NEGATIVE); LEUKOCYTE ESTERASE URINE NEGATIVE (NEGATIVE); NITRITE URINE NEGATIVE (NEGATIVE); OCCULT BLOOD URINE NEGATIVE (NEGATIVE); PROTEIN URINE 1+ (NEGATIVE); SPECIFIC GRAVITY URINE 1.015 (1.005-1.030)
[2022-03-28 14:46] LABS: *AMPHETAMINES SCREEN URINE NEGATIVE (NEGATIVE); *BARBITURATES SCREEN URINE NEGATIVE (NEGATIVE); *BENZODIAZEPINES SCREEN URINE NEGATIVE (NEGATIVE); *COCAINE SCREEN URINE PRESUMTIVE POSITIVE (NEGATIVE); CANNABINOID URINE SCREEN NEGATIVE (NEGATIVE); METHADONE URINE SCREEN NEGATIVE (NEGATIVE); OPIATES URINE SCREEN NEGATIVE (NEGATIVE); PHENCYCLIDINE URINE SCREEN NEGATIVE (NEGATIVE)
[2022-03-28] MEDS ORDERED: METHYLPREDNISOLONE SOD SUCC 125 MG/2 ML VIAL IV NR (16:00)
[2022-03-28] MEDS: SILDENAFIL CITRATE 20MG TABLET PO SCH (21:59)
[2022-03-28] MEDS: METHYLPREDNISOLONE SOD SUCC 125 MG/2 ML VIAL IV SCH (21:59)
[2022-03-29] VITALS (13 sets, daily range): BP systolic 120–157; BP diastolic 63–93
[2022-03-29] MEDS: IPRATROPIUM/ALBUTEROL 0.5-3(2.5)MG/3ML NEB NEB SCH ×6 (03:41→23:49)
[2022-03-29] MEDS: SILDENAFIL CITRATE 20MG TABLET PO SCH ×3 (06:00→23:15)
[2022-03-29] MEDS: METHYLPREDNISOLONE SOD SUCC 125 MG/2 ML VIAL IV SCH ×3 (06:41→23:15)
[2022-03-29 08:10] LABS: BG SAMPLE SITE Left Radial; BG VENT MODE MASK - BIPAP
[2022-03-29 08:16] LABS: BG PCO2 89.9 mmHg (35.0-45.0)
[2022-03-29 08:17] LABS: BG BASE EXCESS 12.1 mmol/L (-2.0-2.0); BG HCO3 ACT 42.3 mmol/L (22.0-26.0); BG PO2 71.2 mmHg (75.0-100.0)
[2022-03-29 08:18] LABS: BG CARBOXYHEMOGLOBIN 1.9 % (0.5-1.5); BG OXYGEN SATURATION 91.7 % (92.0-98.5); BG OXYHEMOGLOBIN 89.9 % (94.0-97.0); BG TOTAL HEMOGLOBIN 12.5 g/dL (12.0-18.0)
[2022-03-29 08:19] LABS: BG DEOXYHEMOGLOBIN 8.1 % (0.0-5.0); BG METHEMOGLOBIN 0.1 % (0.0-1.5)
[2022-03-29 08:21] LABS: BG BILEVEL POS AIRWAY PRESSURE 26; BG FRACTION INSPIRED OXYGEN 40; BG PEEP (cmH2O) 5 cmH2O
[2022-03-29] MEDS: FUROSEMIDE 40MG/4ML VIAL IVP SCH (08:58)
[2022-03-29] MEDS: ENOXAPARIN 40MG/0.4ML SYR SUBCUT SCH ×2 (08:59→20:52)
[2022-03-29 10:25] LABS: BG BASE EXCESS -3.1 mmol/L (-2.0-2.0); BG CARBOXYHEMOGLOBIN 1.4 % (0.5-1.5); BG DEOXYHEMOGLOBIN 4.7 % (0.0-5.0); BG FRACTION INSPIRED OXYGEN 45; BG HCO3 ACT 24.4 mmol/L (22.0-26.0); BG METHEMOGLOBIN 0.3 % (0.0-1.5); BG OXYGEN SATURATION 95.2 % (92.0-98.5); BG OXYHEMOGLOBIN 93.6 % (94.0-97.0); BG PCO2 54.4 mmHg (35.0-45.0); BG PH 7.269 (7.350-7.450); BG PO2 83.4 mmHg (75.0-100.0); BG SAMPLE SITE RIGHT RADIAL; BG TOTAL HEMOGLOBIN 12.1 g/dL (12.0-18.0); BG VENT MODE MASK - BIPAP
[2022-03-29] MEDS: AMLODIPINE 10MG TABLET PO SCH (10:53)
[2022-03-29] MEDS ORDERED: MED4 MT ×2 (14:46→14:49)
[2022-03-29] MEDS: SPIRONOLACTONE 25MG TABLET PO SCH (15:54)
[2022-03-30] VITALS (9 sets, daily range): BP systolic 141–166; BP diastolic 60–99
[2022-03-30] MEDS: IPRATROPIUM/ALBUTEROL 0.5-3(2.5)MG/3ML NEB NEB SCH ×3 (03:55→12:25)
[2022-03-30] MEDS: METHYLPREDNISOLONE SOD SUCC 125 MG/2 ML VIAL IV SCH ×2 (05:24→13:41)
[2022-03-30] MEDS: SILDENAFIL CITRATE 20MG TABLET PO SCH ×2 (05:28→13:42)
[2022-03-30 06:20] LABS: HEMATOCRIT. 40.3 % (36.0-48.0); HEMOGLOBIN. 11.9 g/dL (12.0-16.0); MEAN CORPUSCULAR HEMOGLOBIN 24.9 pg (28.0-32.0); MEAN CORPUSCULAR VOLUME 84.2 fL (81.0-99.0); RED BLOOD CELL COUNT 4.79 mill/uL (4.2-5.4); RED CELL DISTRIBUTION WIDTH 23.2 % (11.6-14.6)
[2022-03-30] MEDS: FUROSEMIDE 40MG/4ML VIAL IVP SCH (08:36)
[2022-03-30] MEDS: SPIRONOLACTONE 25MG TABLET PO SCH (08:36)
[2022-03-30] MEDS: ENOXAPARIN 40MG/0.4ML SYR SUBCUT SCH ×2 (08:36→09:00)
[2022-03-30] MEDS: AMLODIPINE 10MG TABLET PO SCH (08:36)
[2022-03-30 14:21] LABS: MEAN PLATELET VOLUME 11.1 fl (7.4-10.4); PLATELET ESTIMATE NORMAL
[2022-03-30 14:22] LABS: PLATELET 208 x1000/uL (130-400)
== END 2022-03-30 15:30 | disposition home or self-care (01) | DRG 194 ==
LOC: ER 01:07 → 5EST 04:04 → SUPCPDRO 07:34 → EDBEDREQSVC 10:38 → ENRESERV 11:22
PROVIDERS: ADMIT Internal Medicine; ATTEND Internal Medicine
PROC: 5A09357 Assistance with Respiratory Ventilation, Less than 24 Consecutive Hours, Continuous Positive Airway Pressure (ICD-10-PCS; principal; 2022-03-28)
PROC: 5A09357 Assistance with Respiratory Ventilation, Less than 24 Consecutive Hours, Continuous Positive Airway Pressure (ICD-10-PCS; 2022-03-29)
PROC: 5A09357 Assistance with Respiratory Ventilation, Less than 24 Consecutive Hours, Continuous Positive Airway Pressure (ICD-10-PCS; 2022-03-30)
DX: I11.0 Hypertensive heart disease with heart failure (principal); J96.21 Acute and chronic respiratory failure with hypoxia; G93.40 Encephalopathy, unspecified; E87.2 Acidosis; I27.29 Other secondary pulmonary hypertension; E44.1 Mild protein-calorie malnutrition; E66.2 Morbid (severe) obesity with alveolar hypoventilation; E83.51 Hypocalcemia; J44.1 Chronic obstructive pulmonary disease with (acute) exacerbation; I50.33 Acute on chronic diastolic (congestive) heart failure; D64.9 Anemia, unspecified; F12.10 Cannabis abuse, uncomplicated; R74.01 Elevation of levels of liver transaminase levels; F14.10 Cocaine abuse, uncomplicated; Z20.822 Contact with and (suspected) exposure to COVID-19; F17.210 Nicotine dependence, cigarettes, uncomplicated; J96.22 Acute and chronic respiratory failure with hypercapnia; Z79.51 Long term (current) use of inhaled steroids; Z79.899 Other long term (current) drug therapy; Z99.81 Dependence on supplemental oxygen; Z68.43 Body mass index [BMI] 50.0-59.9, adult; Z71.6 Tobacco abuse counseling; Z71.51 Drug abuse counseling and surveillance of drug abuser; D72.829 Elevated white blood cell count, unspecified
CPT/HCPCS: 36415; 36600; 71045; 76604; 80053; 80305; 81003; 82375; 82805; 83880; 84145; 84484; 85025; 87426; 93005; 93306; 93880; 94640; 94660; 94664; 99285; C9803; J0456; J0696; J1650; J1940; J2930; J7512

== ENCOUNTER 2022-04-09 07:20 | Inpatient (IN) | payer OTHER ==
[~2022-04-09] VITALS: Ht 152.4 cm; Wt 127.9 kg
[2022-04-09] VITALS (13 sets, daily range): BP systolic 102–150; BP diastolic 26–130
[~2022-04-09 07:20] MED LIST changes: -AMLO5TAB88 PO; +MED4 MT; -P20 MT
[2022-04-09] MEDS ORDERED: IPRATROPIUM BROMIDE (0.02%) 0.5MG/2.5ML NEB HHN STA (07:35)
[2022-04-09] MEDS ORDERED: METHYLPREDNISOLONE SOD SUCC 125 MG/2 ML VIAL IV STA (07:35)
[2022-04-09] MEDS ORDERED: FUROSEMIDE 40MG/4ML VIAL IVP ONE ×2 (07:45→11:45)
[2022-04-09] MEDS ORDERED: SUCCINYLCHOLINE CHLORIDE 200MG/10ML IV ONE (07:56)
[2022-04-09] MEDS ORDERED: ETOMIDATE 2MG/ML 10ML VIAL IV ONE (07:56)
[2022-04-09] MEDS ORDERED: ALBUTEROL (0.083%) 2.5MG/3ML NEB HHN SCH (08:00)
[2022-04-09 08:38] LABS: CHLORIDE 95 mEq/L (98-107)
[2022-04-09 08:42] LABS: BASOPHILS % 0.6 % (0.0-2.0); EOSINOPHILS % 0.3 % (0.0-5.0); HEMATOCRIT. 40.8 % (36.0-48.0); HEMOGLOBIN. 11.6 g/dL (12.0-16.0); LYMPHOCYTES % 8.9 % (20.0-50.0); MEAN CORPUSCULAR HEMOGLOBIN 24.7 pg (28.0-32.0); MEAN CORPUSCULAR VOLUME 87.1 fL (81.0-99.0); MEAN PLATELET VOLUME 10.5 fl (7.4-10.4); MONOCYTES % 6.2 % (2.0-8.0); PLATELET 141 x1000/uL (130-400); RED BLOOD CELL COUNT 4.68 mill/uL (4.2-5.4); RED CELL DISTRIBUTION WIDTH 23.5 % (11.6-14.6)
[2022-04-09 09:08] LABS: BG BASE EXCESS 9.5 mmol/L (-2.0-2.0); BG CARBOXYHEMOGLOBIN 1.7 % (0.5-1.5); BG DEOXYHEMOGLOBIN 5.4 % (0.0-5.0); BG OXYGEN SATURATION 94.5 % (92.0-98.5); BG OXYHEMOGLOBIN 91.9 % (94.0-97.0); BG PCO2 112.4 mmHg (35.0-45.0); BG PO2 93.2 mmHg (75.0-100.0); BG VENT MODE HHN TX
[2022-04-09 09:19] LABS: PLATELET ESTIMATE NORMAL
[2022-04-09] MEDS ORDERED: KCL 20MEQ/100ML PREMIX 100 ML IV ONE (09:45)
[2022-04-09 10:49] LABS: BG BASE EXCESS 4.9 mmol/L (-2.0-2.0); BG CARBOXYHEMOGLOBIN 1.8 % (0.5-1.5); BG DEOXYHEMOGLOBIN 8.8 % (0.0-5.0); BG FRACTION INSPIRED OXYGEN 50; BG HCO3 ACT 36.5 mmol/L (22.0-26.0); BG METHEMOGLOBIN 0.3 % (0.0-1.5); BG OXYHEMOGLOBIN 89.1 % (94.0-97.0); BG PCO2 99.4 mmHg (35.0-45.0); BG PH 7.183 (7.350-7.450); BG PO2 75.7 mmHg (75.0-100.0); BG SAMPLE SITE RIGHT RADIAL; BG TOTAL HEMOGLOBIN 13.2 g/dL (12.0-18.0); BG TOTAL RESPIRATORY RATE 20 b/min; BG VENT MODE MASK - BIPAP
[2022-04-09] MEDS ORDERED: PROPOFOL 10MG/ML 100ML 100 ML IV ONE ×2 (11:15→15:30)
[2022-04-09] MEDS ORDERED: FENTANYL CITRATE/PF 1,000 MCG in SODIUM CHLORIDE 0.9% 80 ML IV PRN (11:15)
[2022-04-09] MEDS ORDERED: ROCURONIUM BROMIDE 10MG/ML VIAL 5ML IV ONE (11:15)
[2022-04-09] MEDS ORDERED: KETAMINE HCL 50 MG/ML 10ML IV ONE ×2 (11:15→17:15)
[2022-04-09] MEDS ORDERED: FENTANYL CITRATE 2,500 MCG in SODIUM CHLORIDE 0.9% 200 ML IV PRN (11:30)
[2022-04-09 13:40] LABS: BG BASE EXCESS 9.2 mmol/L (-2.0-2.0); BG CARBOXYHEMOGLOBIN 1.5 % (0.5-1.5); BG DEOXYHEMOGLOBIN 5.8 % (0.0-5.0); BG HCO3 ACT 40.8 mmol/L (22.0-26.0); BG METHEMOGLOBIN 0.2 % (0.0-1.5); BG OXYGEN SATURATION 94.1 % (92.0-98.5); BG OXYHEMOGLOBIN 92.5 % (94.0-97.0); BG PCO2 101.7 mmHg (35.0-45.0); BG PH 7.221 (7.350-7.450); BG PO2 85.7 mmHg (75.0-100.0); BG SAMPLE SITE RIGHT RADIAL; BG VENT MODE NASAL CANNULA
[2022-04-09] MEDS ORDERED: FUROSEMIDE 100MG/10ML VIAL IVP NR (14:00)
[2022-04-09] MEDS ORDERED: LIDOCAINE HCL/PF 1% 2ML VIAL ONE (16:05)
[2022-04-09 16:17] LABS: BG BASE EXCESS 9.8 mmol/L (-2.0-2.0); BG CARBOXYHEMOGLOBIN 1.8 % (0.5-1.5); BG DEOXYHEMOGLOBIN 9.8 % (0.0-5.0); BG HCO3 ACT 40.2 mmol/L (22.0-26.0); BG METHEMOGLOBIN 0.2 % (0.0-1.5); BG OXYHEMOGLOBIN 88.2 % (94.0-97.0); BG PCO2 87.4 mmHg (35.0-45.0); BG PH 7.281 (7.350-7.450); BG PO2 63.5 mmHg (75.0-100.0); BG SAMPLE SITE RIGHT RADIAL; BG TOTAL HEMOGLOBIN 13.9 g/dL (12.0-18.0); BG VENT MODE VENT - AC
[2022-04-09 17:13] LABS: CLARITY URINE CLEAR (CLEAR); COLOR URINE YELLOW (YELLOW); KETONES URINE NEGATIVE (NEGATIVE); LEUKOCYTE ESTERASE URINE NEGATIVE (NEGATIVE); NITRITE URINE NEGATIVE (NEGATIVE); OCCULT BLOOD URINE NEGATIVE (NEGATIVE); PH URINE 5.5 (4.5-8.0); PROTEIN URINE 2+ (NEGATIVE); UROBILINOGEN URINE 0.2 E.U./dL (0.2-1.0)
[2022-04-09] MEDS ORDERED: MIDAZOLAM 100MG/100ML PMX 100 ML IV PRN ×2 (17:15→23:00)
[2022-04-09] MEDS ORDERED: ACETAMINOPHEN 325MG TABLET PO PRN (19:15)
[2022-04-09] MEDS ORDERED: ONDANSETRON HCL 4MG/2ML INJ IV PRN (19:15)
[2022-04-09] MEDS ORDERED: PROPOFOL 10MG/ML 100ML 100 ML IV NR (19:45)
[2022-04-09] MEDS ORDERED: PROPOFOL 10MG/ML 100ML 100 ML IV PRN (19:45)
[2022-04-09] MEDS ORDERED: MIDAZOLAM HCL 100 MG in SODIUM CHLORIDE 0.9% 80 ML IV PRN (23:00)
[2022-04-10] VITALS (94 sets, daily range): BP systolic 104–133; BP diastolic 57–87
[2022-04-10 00:02] LABS: BG BASE EXCESS 18.1 mmol/L (-2.0-2.0); BG CARBOXYHEMOGLOBIN 1.5 % (0.5-1.5); BG DEOXYHEMOGLOBIN 1.4 % (0.0-5.0); BG FRACTION INSPIRED OXYGEN 40; BG HCO3 ACT 41.2 mmol/L (22.0-26.0); BG METHEMOGLOBIN 0.1 % (0.0-1.5); BG OXYGEN SATURATION 98.6 % (92.0-98.5); BG PCO2 41.6 mmHg (35.0-45.0); BG PH 7.614 (7.350-7.450); BG PO2 96.1 mmHg (75.0-100.0); BG SAMPLE SITE RIGHT RADIAL; BG TOTAL HEMOGLOBIN 12.1 g/dL (12.0-18.0); BG VENT MODE VENT - AC
[2022-04-10] MEDS: PROPOFOL 10MG/ML 100ML 100 ML IV PRN ×4 (00:47→19:38)
[2022-04-10] MEDS: IPRATROPIUM/ALBUTEROL 0.5-3(2.5)MG/3ML NEB HHN SCH ×3 (01:02→20:34)
[2022-04-10] MEDS: FENTANYL CITRATE/PF 2,500 MCG in SODIUM CHLORIDE 0.9% 200 ML IV PRN ×2 (02:19→14:38)
[2022-04-10 04:20] LABS: HEMATOCRIT. 37.9 % (36.0-48.0); HEMOGLOBIN. 11.2 g/dL (12.0-16.0); RED BLOOD CELL COUNT 4.51 mill/uL (4.2-5.4); RED CELL DISTRIBUTION WIDTH 23.1 % (11.6-14.6)
[2022-04-10 04:56] LABS: PLATELET 132 x1000/uL (130-400)
[2022-04-10 05:04] LABS: PLATELET ESTIMATE NORMAL
[2022-04-10 06:26] LABS: CHLORIDE 96 mEq/L (98-107)
[2022-04-10 07:52] LABS: BG BASE EXCESS 18.5 mmol/L (-2.0-2.0); BG CARBOXYHEMOGLOBIN 0.9 % (0.5-1.5); BG HCO3 ACT 44.3 mmol/L (22.0-26.0); BG METHEMOGLOBIN 0.2 % (0.0-1.5); BG OXYGEN SATURATION 91.9 % (92.0-98.5); BG OXYHEMOGLOBIN 90.9 % (94.0-97.0); BG PCO2 57.1 mmHg (35.0-45.0); BG PH 7.508 (7.350-7.450); BG PO2 57.5 mmHg (75.0-100.0); BG SAMPLE SITE RIGHT RADIAL; BG TOTAL HEMOGLOBIN 12.1 g/dL (12.0-18.0); BG VENT MODE VENT - AC
[2022-04-10] MEDS ORDERED: FUROSEMIDE 40MG/4ML VIAL IVP SCH (09:00)
[2022-04-10] MEDS: PANTOPRAZOLE SODIUM 40 MG/VIAL IV SCH (09:26)
[2022-04-10] MEDS ORDERED: PROPOFOL 10MG/ML 100ML 100 ML IV PRN (11:45)
[2022-04-10] MEDS ORDERED: ACETAZOLAMIDE SODIUM 500MG/VIAL IV NR (12:00)
[2022-04-10 12:45] LABS: *AMPHETAMINES SCREEN URINE NEGATIVE (NEGATIVE); *BARBITURATES SCREEN URINE NEGATIVE (NEGATIVE); *BENZODIAZEPINES SCREEN URINE PRESUMTIVE POSITIVE (NEGATIVE); *COCAINE SCREEN URINE PRESUMTIVE POSITIVE (NEGATIVE); CANNABINOID URINE SCREEN NEGATIVE (NEGATIVE); METHADONE URINE SCREEN NEGATIVE (NEGATIVE); OPIATES URINE SCREEN NEGATIVE (NEGATIVE); PHENCYCLIDINE URINE SCREEN NEGATIVE (NEGATIVE)
[2022-04-10] MEDS: ENOXAPARIN 30MG/0.3ML SYR SUBCUT SCH ×2 (12:57→20:35)
[2022-04-10] MEDS: FUROSEMIDE 40MG/4ML VIAL IVP SCH (16:33)
[2022-04-11] VITALS (72 sets, daily range): BP systolic 99–148; BP diastolic 50–100
[2022-04-11] MEDS: IPRATROPIUM/ALBUTEROL 0.5-3(2.5)MG/3ML NEB HHN SCH ×4 (01:10→20:42)
[2022-04-11 04:33] LABS: BASOPHILS % 0.5 % (0.0-2.0); HEMATOCRIT. 40.4 % (36.0-48.0); HEMOGLOBIN. 11.8 g/dL (12.0-16.0); LYMPHOCYTES % 8.6 % (20.0-50.0); MEAN CORPUSCULAR HEMOGLOBIN 25.1 pg (28.0-32.0); MEAN CORPUSCULAR VOLUME 86.1 fL (81.0-99.0); MEAN PLATELET VOLUME 10.2 fl (7.4-10.4); MONOCYTES % 7.4 % (2.0-8.0); NEUTROPHILS % 82.5 % (40.0-76.0); PLATELET 143 x1000/uL (130-400); RED CELL DISTRIBUTION WIDTH 23.6 % (11.6-14.6)
[2022-04-11 04:54] LABS: CHLORIDE 95 mEq/L (98-107)
[2022-04-11] MEDS: FUROSEMIDE 40MG/4ML VIAL IVP SCH ×2 (07:47→16:27)
[2022-04-11 07:54] LABS: BG BASE EXCESS 11.8 mmol/L (-2.0-2.0); BG CARBOXYHEMOGLOBIN 1.7 % (0.5-1.5); BG DEOXYHEMOGLOBIN 4.5 % (0.0-5.0); BG FRACTION INSPIRED OXYGEN 40; BG METHEMOGLOBIN 0.3 % (0.0-1.5); BG OXYGEN SATURATION 95.4 % (92.0-98.5); BG OXYHEMOGLOBIN 93.5 % (94.0-97.0); BG PCO2 79.1 mmHg (35.0-45.0); BG PH 7.332 (7.350-7.450); BG PO2 88.2 mmHg (75.0-100.0); BG SAMPLE SITE RIGHT RADIAL; BG TOTAL HEMOGLOBIN 12.9 g/dL (12.0-18.0); BG VENT MODE VENT - SIMV
[2022-04-11] MEDS ORDERED: MORPHINE SULFATE 2 MG/ML CPJ (NOT FOR IM USE) IV SCH (08:00)
[2022-04-11] MEDS: PANTOPRAZOLE SODIUM 40 MG/VIAL IV SCH (08:11)
[2022-04-11] MEDS: ENOXAPARIN 30MG/0.3ML SYR SUBCUT SCH ×2 (08:20→22:04)
[2022-04-11] MEDS ORDERED: ACETAZOLAMIDE SODIUM 500MG/VIAL IV SCH (09:00)
[2022-04-11 09:09] LABS: BG BASE EXCESS 17.7 mmol/L (-2.0-2.0); BG CARBOXYHEMOGLOBIN 2.1 % (0.5-1.5); BG DEOXYHEMOGLOBIN 5.5 % (0.0-5.0); BG FRACTION INSPIRED OXYGEN 40; BG HCO3 ACT 48.2 mmol/L (22.0-26.0); BG METHEMOGLOBIN 0.2 % (0.0-1.5); BG OXYGEN SATURATION 94.4 % (92.0-98.5); BG OXYHEMOGLOBIN 92.2 % (94.0-97.0); BG PCO2 91.4 mmHg (35.0-45.0); BG PO2 77.5 mmHg (75.0-100.0); BG SAMPLE SITE RIGHT RADIAL; BG TOTAL HEMOGLOBIN 13.4 g/dL (12.0-18.0); BG VENT MODE CPAP
[2022-04-11] MEDS: PROPOFOL 10MG/ML 100ML 100 ML IV PRN ×3 (12:19→23:15)
[2022-04-11] MEDS ORDERED: LIDOCAINE HCL 1% 10 MG/ML 10ML VIAL ONE (12:40)
[2022-04-11] MEDS: FENTANYL CITRATE/PF 2,500 MCG in SODIUM CHLORIDE 0.9% 200 ML IV PRN (23:59)
[2022-04-12] VITALS (23 sets, daily range): BP systolic 111–149; BP diastolic 58–88
[2022-04-12] MEDS: IPRATROPIUM/ALBUTEROL 0.5-3(2.5)MG/3ML NEB HHN SCH ×4 (02:34→20:53)
[2022-04-12 05:53] LABS: BASOPHILS % 0.4 % (0.0-2.0); EOSINOPHILS % 1.3 % (0.0-5.0); HEMATOCRIT. 44.1 % (36.0-48.0); HEMOGLOBIN. 12.9 g/dL (12.0-16.0); LYMPHOCYTES % 11.5 % (20.0-50.0); MEAN CORPUSCULAR HEMOGLOBIN 24.8 pg (28.0-32.0); MONOCYTES % 8.3 % (2.0-8.0); NEUTROPHILS % 78.5 % (40.0-76.0); RED BLOOD CELL COUNT 5.19 mill/uL (4.2-5.4)
[2022-04-12 06:04] LABS: CHLORIDE 99 mEq/L (98-107)
[2022-04-12] MEDS: FUROSEMIDE 40MG/4ML VIAL IVP SCH ×2 (07:15→17:44)
[2022-04-12] MEDS: PANTOPRAZOLE SODIUM 40 MG/VIAL IV SCH (09:00)
[2022-04-12] MEDS: ENOXAPARIN 30MG/0.3ML SYR SUBCUT SCH (09:00)
[2022-04-12 09:20] LABS: MEAN PLATELET VOLUME 10.8 fl (7.4-10.4)
[2022-04-12 09:21] LABS: PLATELET 155 x1000/uL (130-400)
[2022-04-12 10:37] LABS: BG CARBOXYHEMOGLOBIN 1.6 % (0.5-1.5); BG DEOXYHEMOGLOBIN 3.2 % (0.0-5.0); BG HCO3 ACT 39.6 mmol/L (22.0-26.0); BG METHEMOGLOBIN 0.2 % (0.0-1.5); BG OXYGEN SATURATION 96.7 % (92.0-98.5); BG PCO2 65.4 mmHg (35.0-45.0); BG PO2 93.3 mmHg (75.0-100.0); BG SAMPLE SITE RIGHT RADIAL; BG TOTAL HEMOGLOBIN 13.7 g/dL (12.0-18.0); BG VENT MODE VENT - CPAP
[2022-04-13] VITALS (20 sets, daily range): BP systolic 103–140; BP diastolic 62–95
[2022-04-13] MEDS: IPRATROPIUM/ALBUTEROL 0.5-3(2.5)MG/3ML NEB HHN SCH ×4 (01:20→20:45)
[2022-04-13 05:32] LABS: HEMOGLOBIN. 12.3 g/dL (12.0-16.0); MEAN CORPUSCULAR HEMOGLOBIN 24.8 pg (28.0-32.0); MEAN CORPUSCULAR VOLUME 84.9 fL (81.0-99.0); PLATELET 151 x1000/uL (130-400); RED BLOOD CELL COUNT 4.95 mill/uL (4.2-5.4); RED CELL DISTRIBUTION WIDTH 23.3 % (11.6-14.6)
[2022-04-13 06:02] LABS: CHLORIDE 98 mEq/L (98-107)
[2022-04-13] MEDS: PANTOPRAZOLE SODIUM 40 MG/VIAL IV SCH (09:00)
[2022-04-13] MEDS: ENOXAPARIN 30MG/0.3ML SYR SUBCUT SCH ×2 (09:00→21:53)
[2022-04-13] MEDS ORDERED: POTASSIUM CHLORIDE 20MEQ TABLET SR PO NR (09:15)
[2022-04-13] MEDS: PREDNISONE 20MG TABLET PO SCH (09:30)
[2022-04-13] MEDS: BUDESONIDE 0.5MG/2ML NEB HHN SCH ×2 (09:30→20:45)
[2022-04-13 09:59] LABS: BG BASE EXCESS 7.9 mmol/L (-2.0-2.0); BG CARBOXYHEMOGLOBIN 2.1 % (0.5-1.5); BG DEOXYHEMOGLOBIN 3.5 % (0.0-5.0); BG FRACTION INSPIRED OXYGEN 40; BG HCO3 ACT 36.1 mmol/L (22.0-26.0); BG METHEMOGLOBIN 0.2 % (0.0-1.5); BG OXYGEN SATURATION 96.4 % (92.0-98.5); BG OXYHEMOGLOBIN 94.2 % (94.0-97.0); BG PH 7.343 (7.350-7.450); BG PO2 88.9 mmHg (75.0-100.0); BG SAMPLE SITE RIGHT RADIAL; BG TOTAL HEMOGLOBIN 13.8 g/dL (12.0-18.0); BG VENT MODE NASAL CANNULA
[2022-04-13 12:10] LABS: PLATELET ESTIMATE NORMAL
[2022-04-14] VITALS (12 sets, daily range): BP systolic 109–146; BP diastolic 64–93
[2022-04-14] MEDS: IPRATROPIUM/ALBUTEROL 0.5-3(2.5)MG/3ML NEB HHN SCH ×4 (02:40→18:00)
[2022-04-14 07:06] LABS: BASOPHILS % 0.4 % (0.0-2.0); EOSINOPHILS % 3.7 % (0.0-5.0); HEMATOCRIT. 41.2 % (36.0-48.0); HEMOGLOBIN. 12.3 g/dL (12.0-16.0); LYMPHOCYTES % 12.2 % (20.0-50.0); MEAN CORPUSCULAR HEMOGLOBIN 25.2 pg (28.0-32.0); MEAN CORPUSCULAR VOLUME 84.5 fL (81.0-99.0); MEAN PLATELET VOLUME 10.7 fl (7.4-10.4); MONOCYTES % 9.7 % (2.0-8.0); PLATELET 140 x1000/uL (130-400); RED BLOOD CELL COUNT 4.88 mill/uL (4.2-5.4); RED CELL DISTRIBUTION WIDTH 22.5 % (11.6-14.6)
[2022-04-14 07:27] LABS: CHLORIDE 95 mEq/L (98-107)
[2022-04-14] MEDS: BUDESONIDE 0.5MG/2ML NEB HHN SCH (08:42)
[2022-04-14] MEDS: FUROSEMIDE 40MG/4ML VIAL IVP SCH (09:35)
[2022-04-14] MEDS: PANTOPRAZOLE SODIUM 40 MG/VIAL IV SCH (09:35)
[2022-04-14] MEDS: PREDNISONE 20MG TABLET PO SCH (09:36)
[2022-04-14] MEDS: ENOXAPARIN 30MG/0.3ML SYR SUBCUT SCH ×2 (09:36→22:53)
[2022-04-15] VITALS (8 sets, daily range): BP systolic 100–139; BP diastolic 56–90
[2022-04-15] MEDS: IPRATROPIUM/ALBUTEROL 0.5-3(2.5)MG/3ML NEB HHN SCH ×2 (00:10→07:46)
[2022-04-15] MEDS: BUDESONIDE 0.5MG/2ML NEB HHN SCH (07:46)
[2022-04-15] MEDS: PREDNISONE 20MG TABLET PO SCH (08:42)
[2022-04-15] MEDS: FUROSEMIDE 40MG/4ML VIAL IVP SCH (08:42)
[2022-04-15] MEDS: PANTOPRAZOLE SODIUM 40 MG/VIAL IV SCH (08:42)
[2022-04-15] MEDS: ENOXAPARIN 30MG/0.3ML SYR SUBCUT SCH (08:43)
[2022-04-15] MEDS ORDERED: MED4 MT (10:52)
[2022-04-15] MEDS ORDERED: PANT40TA51 MT (10:52)
[2022-04-15] MEDS ORDERED: GUAI600T44 PO (10:52)
== END 2022-04-15 13:20 | disposition home or self-care (01) | DRG 133 ==
LOC: ER 07:20 → MICUSO 15:43 → ENRESERV 20:11 → 5EST 04-13 17:44
PROVIDERS: ADMIT Internal Medicine; ATTEND Internal Medicine
PROC: 5A1945Z Respiratory Ventilation, 24-96 Consecutive Hours (ICD-10-PCS; principal; 2022-04-09)
PROC: 0BH17EZ Insertion of Endotracheal Airway into Trachea, Via Natural or Artificial Opening (ICD-10-PCS; 2022-04-09)
PROC: 5A09357 Assistance with Respiratory Ventilation, Less than 24 Consecutive Hours, Continuous Positive Airway Pressure (ICD-10-PCS; 2022-04-09)
PROC: 05HY33Z Insertion of Infusion Device into Upper Vein, Percutaneous Approach (ICD-10-PCS; 2022-04-11)
PROC: 5A09357 Assistance with Respiratory Ventilation, Less than 24 Consecutive Hours, Continuous Positive Airway Pressure (ICD-10-PCS; 2022-04-13)
PROC: 0JB70ZZ Excision of Back Subcutaneous Tissue and Fascia, Open Approach (ICD-10-PCS; 2022-04-14)
PROC: 5A09357 Assistance with Respiratory Ventilation, Less than 24 Consecutive Hours, Continuous Positive Airway Pressure (ICD-10-PCS; 2022-04-15)
DX: J96.22 Acute and chronic respiratory failure with hypercapnia (principal); I50.33 Acute on chronic diastolic (congestive) heart failure; L89.153 Pressure ulcer of sacral region, stage 3; J68.0 Bronchitis and pneumonitis due to chemicals, gases, fumes and vapors; E87.8 Other disorders of electrolyte and fluid balance, not elsewhere classified; I11.0 Hypertensive heart disease with heart failure; E66.2 Morbid (severe) obesity with alveolar hypoventilation; J96.21 Acute and chronic respiratory failure with hypoxia; E11.9 Type 2 diabetes mellitus without complications; E87.6 Hypokalemia; D72.829 Elevated white blood cell count, unspecified; F14.10 Cocaine abuse, uncomplicated; F17.210 Nicotine dependence, cigarettes, uncomplicated; Z91.19 Patient's noncompliance with other medical treatment and regimen; Z68.43 Body mass index [BMI] 50.0-59.9, adult; Z99.81 Dependence on supplemental oxygen; Z79.899 Other long term (current) drug therapy
CPT/HCPCS: 31500; 36415; 36573; 36600; 71045; 80048; 80053; 80305; 81003; 82040; 82375; 82805; 83880; 84134; 84478; 84484; 85025; 87070; 93005; 94002; 94003; 94640; 94660; 99291; C1725; C1892; C9113; J0330; J1120; J1650; J1940; J2250; J2270; J2704; J2930; J3010; J3480; J3490; J7050; J7512; J7626